=== PATIENT | female | born 1990 | race Asian ===

== ENCOUNTER 2019-03-18 15:16 | Emergency (ER) | payer MEDICAID ==
[~2019-03-18] VITALS: Ht 152.4 cm; Wt 75.9 kg
[~2019-03-18 15:16] MED LIST: DULO-31 PO; HYDR-3686 PO
--- NOTE | 2019-03-18 15:40 | NUR ---
SPOKE WITH PROVIDER MARGUERITE MCKNIGHT REGARDING PT, PROVIDER SPEAKING WITH PT IN TRIAGE ROOM 2 RIGHT NOW.
[2019-03-18] MEDS ORDERED: ondansetron/PF 4mg/2ml inj IV ONE (15:45)
[2019-03-18] MEDS ORDERED: normal saline 1000ML IV soln IVB ONE (15:45)
[2019-03-18] MEDS ORDERED: morphine 4 MG/ML inj SYRINge IV PRN (15:45)
[2019-03-18 16:42] LABS: CLARITY,URINE CLEAR (Clear); COLOR,URINE STRAW (Yellow); GLUCOSE, URINE NEGATIVE (Neg); KETONES,URINE NEGATIVE (Neg); LEUKOCYTE ESTERASE ,URINE NEGATIVE (Neg); NITRITES, URINE NEGATIVE (Neg); OCCULT BLOOD,URINE TRACE-INTACT (Neg); PROTEIN,URINE NEGATIVE (Neg); UA COLLECTION TYPE CLN CATCH MIDSTREAM; UROBILINOGEN,URINE 0.2 E.U/dL (0.2-1.0)
[2019-03-18 16:43] LABS: URINE HCG NEGATIVE (NEG)
[2019-03-18 16:50] LABS: BACTERIA,URINE FEW /HPF (Neg); MUCUS STRANDS NONE SEEN /LPF (Neg); RBC,URINE 0-2 /HPF (0-2); SQUAMOUS EPITHELIAL CELL,UR MODERATE /LPF (FEW); WBC,URINE 0-4 /HPF (0-4)
[2019-03-18 17:00] LABS: BASOPHILS # (AUTO) 0.1 X10'3 (0-0.2); BASOPHILS % (AUTO) 0.6 % (0-1); EOSINOPHILS # (AUTO) 0.2 X10'3 (0-0.9); EOSINOPHILS % (AUTO) 1.6 % (0-6); HEMOGLOBIN 14.8 g/dl (12.0-16.0); LYMPHOCYTES # (AUTO) 2.3 X10'3 (1.1-4.8); LYMPHOCYTES % (AUTO) 15.6 % (21-51); MEAN CORPUSCULAR HEMOGLOBIN 30.2 PG (27.0-31.0); MEAN CORPUSCULAR HGB CONC 34.4 g/dL (33.0-36.5); MEAN PLATELET VOLUME 6.6 FL (7.4-10.4); MONOCYTES # (AUTO) 1.1 X10'3 (0-0.9); MONOCYTES % (AUTO) 7.6 % (2-12); NEUTROPHILS # (AUTO) 11.2 X10'3 (1.8-7.7); NEUTROPHILS % (AUTO) 74.6 % (42-75); PLATELET COUNT 402 X10'3 (140-440); RED BLOOD COUNT 4.89 X10'6 (4.20-5.60); RED CELL DISTRIBUTION WIDTH 12.9 % (11.5-14.5)
[2019-03-18 17:14] LABS: ALBUMIN 3.9 G/DL (3.4-5.0); ALKALINE PHOSPHATASE 70 IU/L (46-116); ANION GAP 8 (8-16); BILIRUBIN,TOTAL 0.2 MG/DL (0.1-1.0); BLOOD UREA NITROGEN 13 MG/DL (7-18); BUN/CREATININE RATIO 16.5 (6.6-38.0); CALCIUM 8.5 MG/DL (8.5-10.1); CHLORIDE 102 MMOL/L (99-107); CREATININE 0.79 MG/DL (0.40-0.90); LIPASE 142 U/L (73-393); SODIUM 137 MMOL/L (135-145); TOTAL CARBON DIOXIDE 27.1 MMOL/L (24-32); TOTAL PROTEIN 7.7 G/DL (6.4-8.2); eGFR 85 ML/MIN
[2019-03-18 17:29] LABS: GLUCOSE 95 MG/DL (70-104); POTASSIUM 4.1 MMOL/L (3.5-5.1)
[2019-03-18 17:47] LABS: ALANINE AMINOTRANSFERASE 74 U/L (12-78); ASPARTATE AMINO TRANSFERASE 23 U/L (10-37)
--- NOTE | 2019-03-18 18:37 | NUR ---
Medications long overdue prior to my arrival. Patient reports feeling better without them and is drinking water without difficulty. Juan Daniel Diaz notified and medications cancelled. Patient reports that she related to the triage nurse that she was feeling suicidal but this does not seem to be related to the provider or mentioned in the triage note. Patient states that she has a psych history and that she would go home and overdose on a, "cocktail of my medications." Hx of suicide attempt by cutting wrists and overdosing on trazadone.
[2019-03-18 18:55] LABS: URINE AMPHETAMINE SCREEN NEGATIVE (Neg); URINE BARBITUATE SCREEN NEGATIVE (Neg); URINE BENZODIAZEPINES SCREEN NEGATIVE (Neg); URINE CANNABINOID SCREEN NEGATIVE (Neg); URINE COCAINE SCREEN NEGATIVE (Neg); URINE METHADONE SCREEN NEGATIVE (Neg); URINE OPIATE SCREEN NEGATIVE (Neg); URINE PHENCYCLIDINE SCREEN NEGATIVE (Neg)
[2019-03-18 19:07] LABS: ETHANOL < 0.010 GM/DL (0.0-0.010)
--- NOTE | 2019-03-18 22:30 | NUR ---
PT AMBULATED TO RESTROOM, STABLE GAIT. PT PLACED BACK IN ROOM ON GURNEY. NO OTHER NEEDS EXPRESSED AT THIS TIME.
--- NOTE | 2019-03-19 | NUR ---
PT RESTING IN BED, EYES CLOSED, NAD NOTED. PT IN LINE OF SITE OF NURSES STATION FOR PT SAFETY. WILL CONTINUE TO MONITOR.
--- NOTE | 2019-03-19 06:56 | NUR ---
PT IS SLEEPING, NO S/S OF DISTRESS, DISCOMFORT OR AGITATION, PT RESPIRATION SPONTANEOUS, EVEN AND UNLABORED, WILL ADDRESS PT MEDICATION RECORD WHEN SHE IS AWAKE.
[2019-03-19] MEDS ORDERED: BUPR150T8 PO (08:28)
[2019-03-19] MEDS ORDERED: PROP20TA6 PO (08:28)
[2019-03-19] MEDS ORDERED: BUSP15TA3 PO (08:29)
[2019-03-19] MEDS ORDERED: PRAZ1CAP5 PO (08:29)
[2019-03-19] MEDS ORDERED: DULO-31 PO (08:33)
[2019-03-19] MEDS ORDERED: ibuprofen tablet 400 MG TABLET PO ONE (09:10)
--- NOTE | 2019-03-19 09:10 | NUR ---
DR OLVERA INFORMED OF PT ABD PAIN 03/15, REVIEWED PT RECENT ABD PAIN AND HX OF IBS, VERBAL ORDER RECIEVED FOR 800 MG IBUPROFEN, DR OLVERA TO REVIEW PT CHART, WILL MEDICATE PT AND CONTINUE TO MONITOR PT STATUS.
[2019-03-19] MEDS: busPIRone 15mg tablet PO PRN ×2 (09:20→20:36)
[2019-03-19] MEDS: buPROPion SR 150mg tablet PO SCH (09:20)
[2019-03-19] MEDS: propranolol 10mg tablet PO SCH ×2 (09:20→20:36)
[2019-03-19] MEDS: duloxetine 30mg CAPSULE.DR PO SCH (09:21)
--- NOTE | 2019-03-19 09:24 | NUR ---
PT ATE APPROX 75% OF BREAKFAST TRAY, MEDICATED PT FOR PAIN, ANXIETY AND SCHEDULED DAILY MEDICATIONS, PT REMAINS CALM AND COOPERATIVE DURING INTERACTIONS.
--- NOTE | 2019-03-19 10:18 | NUR ---
PT LYING ON RIGHT SIDE SLEEPING, RESPIRATIONS SPONTANEOUS, EVEN AND UNLABORED, NO S/S OF DISTRESS, DISCOMFORT OR AGITATION, PT MOVED IN BED ADLIB, AMBULATES AND DAILY ADLs INDEPENDENTLY UPON WAKING. WILL CONTINUE TO MONITOR PT STATUS UNTIL
--- NOTE | 2019-03-19 12:20 | NUR ---
PT MOVED FROM BED 07 TO BED 25 ESCORTED BY HANDS HANGER AND 2 SAFETY OFFICERS, PT TO BE EVALUATED BY [facility] ON 1798 CURRENTLY
--- NOTE | 2019-03-19 12:25 | NUR ---
CALLED TO [facility] OFFICE TO NOTIFY PT ON 1798 AND NEED EVALUATION BY [facility] FOR WRITTEN 1993
--- NOTE | 2019-03-19 13:08 | NUR ---
PT SITTING UP IN BED EATING HER LUNCH,PT SAID HER PAIN IS BETTER 6/10 .PT VITALS CHECKED HR 87.NO DISTRESS NOTED,PT TRANG, AND COOPERATIVE.WILL CONT TO MONITOR.
--- NOTE | 2019-03-19 13:17 | NUR ---
PT MOTHER CALLED PT ON PHONE WITH MOTHER EXPLAINING THAT SHE IS IN OVERFLOW AND HOW SHE IS FEELING.
--- NOTE | 2019-03-19 13:37 | NUR ---
PT STILL WORKING ON HER LUNCH TRAY .PT QUIET AND CALM. WILL CONT TO MONITOR.
--- NOTE | 2019-03-19 13:49 | NUR ---
PT GOT UP TO USE RESTROOM. FINISHED HER LUNCH ATE APPROX 80 %OF LUNCH.
--- NOTE | 2019-03-19 15:27 | NUR ---
[employer] equipment repairer at bedside doing assessment.
--- NOTE | 2019-03-19 19:39 | NUR ---
pt want to talk to someone as pt said she is feeling overwhelmed and miserable.spoke to pt .pt stated that 'i am feeling miserable as the [facility] health security assessor came by and she is going to inform my previous counsler dariusz that am thinking of killing her and keeping her body and i can't live with the fact that she knows that am thinking of killing her ,iwould rather before she knows."pt started crying looks sad and hopeless,asked the pt do you have a plan to hurt urself? pt said not right now but i have to find out a way.psychological support given to the pt ,asked about pt future plans ,pt said she want to get and kids and she smiled ,helped pt to focus on healthier aspects of life ,pt said i felt lot better after talking to you ,pt started solving puzzle and said i love doing coloring and solving problem .pt denies any other concern.pt said am feeling better and now more relaxed after sharing her thoughts.
--- NOTE | 2019-03-19 20:40 | NUR ---
PT GIVEN HER HS MEDS AND BUSPAR FOR HER ANXIETY. PT WAS PLEASANT AND COOPERATIVE WITH CARE.
[2019-03-19] MEDS ORDERED: prazosin 1mg capsule PO SCH (21:00)
--- NOTE | 2019-03-19 22:58 | NUR ---
rcvd report from MARQUIS Roche, pt is in bed, appears to be asleep, equal, regular breathing, no s/s of distress observed
--- NOTE | 2019-03-19 23:38 | NUR ---
pt is prone in bed, regular breathing present, no s/s of distress observed, eyes closed appears to be asleep
--- NOTE | 2019-03-20 00:21 | NUR ---
Lachelle from [facility], called for a nurse to nurse report, gave report, they will work on transfer
--- NOTE | 2019-03-20 00:42 | NUR ---
pt is prone in bed, quietly snoring, no s/s of distress observed
--- NOTE | 2019-03-20 01:36 | NUR ---
pt is asleep, prone, unlabored breathing present
--- NOTE | 2019-03-20 02:30 | NUR ---
Patient sleeping on her left side with even unlabored breathing.
--- NOTE | 2019-03-20 03:13 | NUR ---
pt is asleep no s/s of distress observed, regular breathing
--- NOTE | 2019-03-20 04:22 | NUR ---
pt is asleep, unlabored breathing
--- NOTE | 2019-03-20 05:28 | NUR ---
pt is laying on her left side, eyes closed, appears to be sleeping, regular breathing present, no s/s of distress observed
--- NOTE | 2019-03-20 06:03 | NUR ---
pt cooperative with vitals, no s/s of distress observed
--- NOTE | 2019-03-20 06:30 | NUR ---
Nursing Note: Pt laying in bed with eyes closed, respirations even and unlabored, no S&S of distress, will continue to monitor.
--- NOTE | 2019-03-20 07:56 | NUR ---
Nursing Note: Nurse to Nurse with Rivka Mcqueen. Pt sleeping, RR even and unlabored, no S&S of distress, will continue to monitor.
[2019-03-20] MEDS: buPROPion SR 150mg tablet PO SCH (09:12)
[2019-03-20] MEDS: duloxetine 30mg CAPSULE.DR PO SCH (09:12)
[2019-03-20] MEDS: propranolol 10mg tablet PO SCH (09:12)
--- NOTE | 2019-03-20 10:11 | NUR ---
relieving RN for break, pt is resting quietly on gurney
--- NOTE | 2019-03-20 10:46 | NUR ---
Nursing Note: Pt laying on Xiomy nascimento, RR even and unla Addendum: 03/20/19 at 1047 by TEOFILO Continue: RR even and unlabored, no S&S of distress, will continue to monitor.
--- NOTE | 2019-03-20 12:28 | NUR ---
Nursing Note: [facility] office called, pt accepted to [facility]. Dr. Keith is the accepting Dr. Will continue to monitor.
--- NOTE | 2019-03-20 12:51 | NUR ---
Nursing Note: Pt laying in bed on R side, RR even and unlabored, no S&S of distress, will continue to monitor.
--- NOTE | 2019-03-20 14:37 | NUR ---
Nursing Notes: ANJALI Gutierrez at pt's bedside, pt signing consent paperwork for CBR[facility]. Pt cooperative. No S&S of distress, will continue to monitor.
--- NOTE | 2019-03-20 14:54 | NUR ---
Discharge note: Pt discharged at 1450 to [facility], via wheelchair. Escorted by [facility] ANJALI Ochoa and a security auditor. Pt calm and cooperative. No S&S of distress. Pt provided discharge instructions and offered opportunity to ask questions. All possessions sent with pt.
[2019-03-20 15:03] VITALS: BP 110/75
== END 2019-03-20 14:50 ==
LOC: ER 15:16
DX: K52.9 Noninfective gastroenteritis and colitis, unspecified (principal); R45.851 Suicidal ideations; R45.850 Homicidal ideations; F31.9 Bipolar disorder, unspecified; Z79.899 Other long term (current) drug therapy
CPT/HCPCS: 36415; 74176; 80053; 80305; 80320; 81001; 81025; 83690; 84443; 85025; 85610; 99285

== ENCOUNTER 2019-03-20 13:53 | Inpatient (IN) | payer MEDICAID ==
[~2019-03-20] VITALS: Ht 153.7 cm; Wt 79.9 kg
[~2019-03-20 13:53] MED LIST changes: +BUPR150T8 PO; +BUSP15TA3 PO; -HYDR-3686 PO; +PRAZ1CAP5 PO; +PROP20TA6 PO
[2019-03-20] MEDS ORDERED: tuberculin, purif. prot. deriv. 5 units/0.1ml ID ONE (14:10)
[2019-03-20] MEDS ORDERED: loperamide 2mg capsule PO PRN (14:10)
[2019-03-20] MEDS ORDERED: busPIRone 15mg tablet PO PRN (14:55)
--- NOTE | 2019-03-20 16:01 | NUR ---
Admission Note: Pt admitted today on 5150 at 1500 for DTS/DTO. Pt escorted up from the ER via W/C with security and Don Abbott to the shower for skin check. Pt reports homicidal thoughts and has been thinking about going to [place] to kill her former therapist and bring her body back home to be near her. Raquel also reports suicidal thoughts with plan to OD. Pt has history of Bipolar.
[2019-03-20 19:00] VITALS: BP 128/88
[2019-03-20] MEDS: prazosin 1mg capsule PO SCH (20:15)
[2019-03-20] MEDS: propranolol 10mg tablet PO SCH (20:15)
--- NOTE | 2019-03-20 21:24 | NUR ---
Nursing Progress Note: Legal hold:5149 Client on voluntary/involuntary status for DTS/DTO. Report received from nurse with use of SBAR. Why are they here:. Admission Note: Pt admitted today on 5150 at 1500 for DTS/DTO. Pt escorted up from the ER via W/C with security and Don Abbott to the shower for skin check. Pt reports homicidal thoughts and has been thinking about going to [place] to kill her former therapist and bring her body back home to be near her. Raquel also reports suicidal thoughts with plan to OD. Pt has history of Bipolar. Assessment What has happened this shift: S/I, H/I:yes A/VH: denies Sleep: ADL's: ind Group attendance: Were meds taken:yes Any med S/E none Mental Status Exam Appearance: kempt Eye contact:good Behavior: calm Speech:clear Mood: glumb Affect: flat Thought process:intact Thought Content:appropriate Cognition: Insight:poor Judgment:poor Interventions PRN's used:none Therapeutic interventions:[] Restraints/seclusion/emergency medication:[] Justification of Continued Inpatient Treatment: Patient continuses to express SI/HIat this time and needs further monitoring for safety.
[2019-03-21] MEDS: acetaminophen 325mg tablet PO PRN ×3 (04:10→19:46)
[2019-03-21 08:02] LABS: HEMOGLOBIN A1C 5.9 % (4.5-6.2)
[2019-03-21 08:06] LABS: CHOL/HDL RATIO 5.9 (0.00-4.99); CHOLESTEROL 237 MG/DL (0-200); HDL CHOLESTEROL 40 MG/DL (35-60); LDL CHOLESTEROL 143 MG/DL (50-100); TRIGLYCERIDES 317 MG/DL (20-135)
[2019-03-21] MEDS: buPROPion SR 150mg tablet PO SCH (08:06)
[2019-03-21] MEDS: duloxetine 30mg CAPSULE.DR PO SCH (08:06)
[2019-03-21] MEDS: propranolol 10mg tablet PO SCH ×2 (08:06→20:42)
[2019-03-21 08:11] VITALS: BP 120/79
[2019-03-21] MEDS: magnesium hydroxide 30ml (MOM) UD suspension PO PRN (09:00)
--- NOTE | 2019-03-21 13:00 | NUR ---
Malnutrition consult: patient presents with normal muscle strength, per documented weight history no weight loss, great appetite 75-100% PO intake, no edema, no malnutrition at this time. Addendum: 03/21/19 at [address] Amended: Links added.
--- NOTE | 2019-03-21 14:35 | NUR ---
Nursing Progress Note: Legal hold:5150 Client on involuntary status for DTS/DTO. Report received from nurse with use of SBAR, Johanny ERICKSON Why are they here:. Pt presented to the ER with c/o LLQ abdominal pain then divulged that the main reason she was there is that she was sent by a therapist for eval due to reports of homicidal thoughts. She has been thinking about going to [place] to kill her former therapist and bring her body back home to be near her. Rqauel also reports suicidal thoughts with plan to OD. Pt has history of Bipolar. Assessment What has happened this shift: Pt rated her depression at a 9/10 today and her anxiety at an 8/10. She is endorsing SI with a plan to cut her wrists but contracts for safety today saying she won't do it here. Pt continues to endorse HI as well towards her former therapist. Pt described how she started seeing the therapist in July but the therapist moved away to [place] in November. Pt stated that they had gotten really close but then the therapist changed. Pt continues to think about going to [place] to kill her former therapist and bring her body back to keep with her. "I really miss her...I think I'm obsessed with her." Pt stated these things in a soft, pleasant little girl-like voice and smiled at times during the conversation. Attempted some reflection and reality orientation, discussed possible feelings of anger about therapist leaving her, also discussed how she seems to care for her former therapist and caring does not involve harming another. Pt nodded and smiled but remained steadfast in her ideations. Pt continues to complain of LLQ pain, stated she was worked up at [facility] for this and the studies came back normal, all but her WBCs which were 15. Pt states she was told she may have had a virus. She is also c/o constipation stating she had a small hard BM this morning. Pt reported that her last menstrual cycle ended on the of last month and that she has been bleeding a little from her vagina but not heavy like her periods usually are. Pt describes LLQ pain as crampy and sharp. Abdomen is soft, BS X 4, some tenderness LLQ with palpation. Administered prn Tylenol 650 mg and MOM at 0900, gave prn Buspar 15 mg for anxiety at 0905. Pt was cooperative and polite, thanked this RN for her help. S/I, H/I: +SI/+HI A/VH: Pt denied, stated she did have AH and VH in the past, was treated at [facility] and given some medicine that stopped them. Sleep: Reported she slept well, slept 7.5 hours per noc shift report ADL's: independent Group attendance: yes Were meds taken:yes Any med S/E: none noted or reported Mental Status Exam Appearance: clean, appropriate Eye contact:good Behavior: calm, cooperative Speech: soft, clear, normal rate and rhythm Mood: depressed, anxious Affect: calm Thought process: Linear, some perseveration on somatic complaints Thought Content: Concerned about LLQ pain, misses and obsesses over former therapist Cognition: A/O X 4 Insight:fair Judgment:poor Interventions PRN's used: MOM, Tylenol 650 mg, Buspar 15 mg Therapeutic interventions: 1:1 assessment, therapeutic conversation, medication administration/education/management, constipation management, reality orientation, encouragement to attend groups, Q 15 min safety checks. Restraints/seclusion/emergency medication: N/A Justification of Continued Inpatient Treatment: Pt continues to endorse SI and HI. She needs crisis stabilization and medication adjustment in a safe, therapeutic environment.
[2019-03-21 20:00] VITALS: BP 126/89
[2019-03-21] MEDS: busPIRone 15mg tablet PO SCH (20:42)
[2019-03-21] MEDS: docusate sod 100mg capsule PO SCH (20:42)
[2019-03-21] MEDS: prazosin 1mg capsule PO SCH (20:42)
--- NOTE | 2019-03-21 22:53 | NUR ---
Nursing Progress Note: Legal hold:5150 Client on involuntary status for DTS/DTO. Report received from nurse with use of KEVIN, Johanny ERICKSON Why are they here:. Pt presented to the ER with c/o LLQ abdominal pain then divulged that the main reason she was there is that she was sent by a therapist for eval due to reports of homicidal thoughts. She has been thinking about going to [place] to kill her former therapist and bring her body back home to be near her. Raquel also reports suicidal thoughts with plan to OD. Pt has history of Bipolar. Assessment What has happened this shift: Pt rated her depression at a 9/10 today and her anxiety at an 8/10. She is endorsing SI with a plan to cut her wrists but contracts for safety today saying she won't do it here. Pt continues to endorse HI as well towards her former therapist. Pt continues to complain of LLQ pain, stated she was worked up at [facility] for this and the studies came back normal. Pt describes LLQ pain as crampy and sharp. Abdomen is soft, BS X 4, some tenderness LLQ with palpation. Administered prn Tylenol 650 mg.Pt was cooperative and polite, thanked this RN for her help. S/I, H/I: +SI/+HI A/VH: Pt denied, stated she did have AH and VH in the past, was treated at [facility] and given some medicine that stopped them. Sleep: Reported she slept well, slept 7.5 hours per noc shift report ADL's: independent Group attendance: yes Were meds taken:yes Any med S/E: none noted or reported Mental Status Exam Appearance: clean, appropriate Eye contact:good Behavior: calm, cooperative Speech: soft, clear, normal rate and rhythm Mood: depressed, anxious Affect: calm Thought process: Linear, some perseveration on somatic complaints
[2019-03-22 08:00] VITALS: BP 126/83
[2019-03-22] MEDS: duloxetine 30mg CAPSULE.DR PO SCH (08:23)
[2019-03-22] MEDS: propranolol 10mg tablet PO SCH ×2 (08:23→20:43)
[2019-03-22] MEDS: docusate sod 100mg capsule PO SCH ×2 (08:24→20:43)
[2019-03-22] MEDS: busPIRone 15mg tablet PO SCH ×3 (08:24→20:43)
[2019-03-22] MEDS: buPROPion SR 150mg tablet PO SCH (08:24)
[2019-03-22] MEDS: acetaminophen 325mg tablet PO PRN (09:02)
[2019-03-22] MEDS: magnesium hydroxide 30ml (MOM) UD suspension PO PRN (09:02)
[2019-03-22] MEDS ORDERED: ALBU8HFA PO (14:22)
[2019-03-22] MEDS: hydrOXYzine 25 MG tablet PO PRN (14:32)
--- NOTE | 2019-03-22 15:36 | NUR ---
Nursing Progress Note: Legal hold:5150 Client on involuntary status for DTS/DTO. Report received from nurse with use of SBAR, Johanny ERICKSON Why are they here:. Pt presented to the ER with c/o LLQ abdominal pain then divulged that the main reason she was there is that she was sent by a therapist for eval due to reports of homicidal thoughts. She has been thinking about going to [place] to kill her former therapist and bring her body back home to be near her. Raquel also reports suicidal thoughts with plan to OD. Pt has history of Bipolar. Assessment What has happened this shift: Pt rated her depression today at an 8/10 and her anxiety at a 7/10, stated, "I would kill myself if I got out of here," reported her plan would be to OD or to cut her wrists. Pt continues to have HI toward her former therapist, "not because I'm angry with her, just because I miss her sooo much." Pt reported that she slept really well. She continues to c/o LLQ pain, reports that she still feels constipated and that she has started her period. BS present X 4, administered prn MOM and tylenol 650 mg at 0900. Pt's prn Buspar was changed to routine 15 mg TID. At around 1415 pt reported to PCT that she was having "chest pain." VS were taken, 97.4, 80, 20, 147/97, 99% on RA. Pt appeared anxious. Pt reported that she was helping to clean the dining room after lunch and the cleaning supplies irritated her lungs, caused her to cough, feel SOB and have chest pain. Pt lungs were clear though diminished upon auscultation, pt was not taking deep breaths but breathing shallowly. Pt reported that she has seasonal asthma and had been prescribed an inhaler at home. Heart rate was regular and pt denied any pain radiating to arms. Pt admitted to feeling anxious, stated she gets angina sometimes when she is anxious. The hospitalist Dr Patino was present on the unit and assessed the pt. He did not feel she was having cardiac associated chest pain, he ordered prn albuterol neb txs Q 6H prn. Administered prn Atarax 50 mg at 1432, RT came and administered a breathing treatment. Pt currently reports that she no longer has chest pain and is feeling much better. Determined with moccasin sewer that the pt had not been using any cleaning supplies, she had only been present in the room while the tables were being wiped down. S/I, H/I: +SI, +HI A/VH: Pt denies Sleep: Pt reported sleeping really well, slept 6.5 hours per noc shift report ADL's: independent Group attendance: yes Were meds taken:yes Any med S/E: none noted or reported Mental Status Exam Appearance: Hair a little greasy, dressed in green hospital scrubs Eye contact: Fair Behavior: cooperative, socializes with select peers, does search word puzzles in her room, a little needy and attention seeking Speech: soft, clear, little girl-like voice with normal rate and rhythm Mood: depressed, anxious Affect: anxious Thought process: organized,obsessive, perseveration on somatic complaints Thought Content: focuses on somatic complaints, her abdominal pain, she's constipated, she has period cramps, she had chest pain and felt SOB from being in the room with cleaning products, and she misses her former therapist Cognition: A/O X 4 Insight:fair Judgment:poor Interventions PRN's used: MOM, Tylenol 650 mg, atarax 50 mg, albuterol neb tx Therapeutic interventions: 1:1 assessment, therapeutic conversation, medication administration/education/management, constipation management, reality orientation, anxiety management, encouragement to attend groups, Q 15 min safety checks. Restraints/seclusion/emergency medication: N/A Justification of Continued Inpatient Treatment: Pt continues to be depressed, anxious and to endorse SI and HI. She needs crisis stabilization and medication adjustment in a safe, therapeutic environment.
[2019-03-22 20:00] VITALS: BP 138/91
[2019-03-22] MEDS: prazosin 1mg capsule PO SCH (20:44)
--- NOTE | 2019-03-22 23:31 | NUR ---
Nursing Progress Note: Legal hold:5150 Client on involuntary status for DTS/DTO. Report received from nurse with use of Omari BROWN Why are they here:. Pt presented to the ER with c/o LLQ abdominal pain then divulged that the main reason she was there is that she was sent by a therapist for eval due to reports of homicidal thoughts. She has been thinking about going to [place] to kill her former therapist and bring her body back home to be near her. Raquel also reports suicidal thoughts with plan to OD. Pt has history of Bipolar. Assessment What has happened this shift: Pt rated her depression today at an 8/10 and her anxiety at a 7/10, stated, "I would kill myself if I got out of here," reported her plan would be to OD or to cut her wrists. Pt continues to have HI toward her former therapist, "not because I'm angry with her, just because I miss her sooo much." Pt reported that she slept really well. She continues to c/o LLQ pain, reports that she still feels constipated and that she has started her period. BS present X 4, administered prn MOM and tylenol 650 mg at 0900. Pt's prn Buspar was changed to routine 15 mg TID. Patient c/o chest pain and SOB earlier in the day. Pt had no further complaint this shift. S/I, H/I: +SI, +HI A/VH: Pt denies Sleep: Pt reported sleeping really well, slept 6.5 hours per noc shift report ADL's: independent Group attendance: yes Were meds taken:yes Any med S/E: none noted or reported Mental Status Exam Appearance: Hair a little greasy, dressed in green hospital scrubs Eye contact: Fair Behavior: cooperative, socializes with select peers, does search word puzzles in her room, a little needy and attention seeking Speech: soft, clear, little girl-like voice with normal rate and rhythm Mood: depressed, anxious Affect: anxious Thought process: organized,obsessive, perseveration on somatic complaints Thought Content: focuses on somatic complaints, her abdominal pain, she's constipated, she has period cramps, she had chest pain and felt SOB from being in the room with cleaning products, and she misses her former therapist Cognition: A/O X 4 Insight:fair Judgment:poor Interventions PRN's used: MOM, Tylenol 650 mg, atarax 50 mg, albuterol neb tx Therapeutic interventions: 1:1 assessment, therapeutic conversation, medication administration/education/management, constipation management, reality orientation, anxiety management, encouragement to attend groups, Q 15 min safety checks. Restraints/seclusion/emergency medication: N/A Justification of Continued Inpatient Treatment: Pt continues to be depressed, anxious and to endorse SI and HI. She needs crisis stabilization and medication adjustment in a safe, therapeutic environment.
[2019-03-23] MEDS: buPROPion SR 150mg tablet PO SCH (07:58)
[2019-03-23] MEDS: propranolol 10mg tablet PO SCH ×2 (07:58→20:32)
[2019-03-23] MEDS: busPIRone 15mg tablet PO SCH ×3 (07:58→20:30)
[2019-03-23] MEDS: duloxetine 30mg CAPSULE.DR PO SCH (07:58)
[2019-03-23] MEDS: docusate sod 100mg capsule PO SCH ×2 (07:58→20:31)
[2019-03-23] MEDS: acetaminophen 325mg tablet PO PRN (07:59)
[2019-03-23 08:00] VITALS: BP 132/90
[2019-03-23] MEDS: albuterol 2.5 MG/3 ML nebule NEB PRN (10:24)
[2019-03-23] MEDS: ibuprofen 200mg tablet PO SCH ×2 (12:11→20:32)
[2019-03-23] MEDS: hydrOXYzine 25 MG tablet PO PRN (12:11)
[2019-03-23 12:44] LABS: BASOPHILS # (AUTO) 0.1 X10'3 (0-0.2); BASOPHILS % (AUTO) 0.7 % (0-1); EOSINOPHILS # (AUTO) 0.2 X10'3 (0-0.9); HEMATOCRIT 40.2 % (35.0-45.0); HEMOGLOBIN 13.9 g/dl (12.0-16.0); LYMPHOCYTES # (AUTO) 1.9 X10'3 (1.1-4.8); LYMPHOCYTES % (AUTO) 22.9 % (21-51); MEAN CORPUSCULAR HEMOGLOBIN 30.8 PG (27.0-31.0); MEAN CORPUSCULAR HGB CONC 34.6 g/dL (33.0-36.5); MEAN PLATELET VOLUME 6.6 FL (7.4-10.4); MONOCYTES # (AUTO) 0.8 X10'3 (0-0.9); MONOCYTES % (AUTO) 9.8 % (2-12); NEUTROPHILS # (AUTO) 5.4 X10'3 (1.8-7.7); NEUTROPHILS % (AUTO) 64.6 % (42-75); PLATELET COUNT 351 X10'3 (140-440); RED BLOOD COUNT 4.51 X10'6 (4.20-5.60); RED CELL DISTRIBUTION WIDTH 13.2 % (11.5-14.5); WHITE BLOOD COUNT 8.4 X10'3 (4.5-11.0)
[2019-03-23] MEDS: dicyclomine 10 MG capsule PO PRN (15:21)
--- NOTE | 2019-03-23 16:03 | NUR ---
Nursing Progress Note: Legal hold:5250 Client on involuntary status for DTS/DTO. Report received from nurse with use of SBAR, Johanny ERICKSON Why are they here:. Pt presented to the ER with c/o LLQ abdominal pain then divulged that the main reason she was there is that she was sent by a therapist for eval due to reports of homicidal thoughts. She has been thinking about going to [place] to kill her former therapist and bring her body back home to be near her. Raquel also reports suicidal thoughts with plan to OD. Pt has history of Bipolar. Assessment What has happened this shift: Pt reported, "I'm feeling anxious today but I don't know why," then went on to say, "I think it's worse-this stupid pain down here that's not going away, it seems like phantom pain but it's not, I just want to because of it, I can't deal with it." "It's uncomfortable, I pooped really good, I don't feel like I'm constipated anymore." Pt continues to c/o LLQ/pelvic pain. She describes it as sharp and cramping. She stated that it feels like, "you know when you get a cramp in your side." Asked her if she meant a "stitch" and she agreed yes. Asked if she was having gas, she reported that yes she was and that pain seemed worse just after having a soft, formed BM today. She reported that she was not on her period anymore, that she thinks it's over. Pt states that her periods usually only last around 3 days. Medicated with prn Tylenol 650 mg at 0759. Pt denied HI today, stated that she no longer wishes to kill her former therapist but wants to make a wax figure of her. Pt continues to endorse SI, states, "It's when I go home, I'm super scared of myself, I'm just so depressed." Spoke with MARGUERITE Love regarding pt's complaints of ongoing LLQ pain. He ordered ibuprofen 600 mg TID, Bentyl 10 mg Q 6H prn abdominal cramping, and to recheck CBC. CBC came back WNL, WBC down from 15 to 8.4. A hot compress was provided to pt, ibuprofen administered as ordered, and prn Atarax given for anxiety before lunch. Pt reported that she felt better. She reapproached this RN at 1521 to request the medicine for cramping, she was grimacing and holding her side. Bentyl 10 mg administered at that time. Pt was placed on a 5250 today. S/I, H/I: +SI, denies HI A/VH: Pt denies Sleep: Slept 7.75 hours per noc shift report ADL's: independent Group attendance: yes Were meds taken:yes Any med S/E: none noted or reported Mental Status Exam Appearance: Clean (pt showered yesterday afternoon) Eye contact: Fair, frequently avoids direct eye contact Behavior: pleasant, cooperative Speech: soft, clear, little girl-like voice with normal rate and rhythm Mood: depressed, anxious Affect: anxious Thought process: perseveration, especially on somatic complaints Thought Content: perseverating on pain/cramping LLQ, believes that something is wrong Cognition: A/O X 4 Insight:fair Judgment:poor Interventions PRN's used: Tylenol 650 mg, Atarax 50 mg, Bentyl 10 mg Therapeutic interventions: 1:1 assessment, therapeutic conversation, medication administration/education/management, reality orientation, anxiety management, pain management, encouragement to attend groups, Q 15 min safety checks. Restraints/seclusion/emergency medication: N/A Justification of Continued Inpatient Treatment: Pt continues to be depressed, anxious and to endorse SI. She needs crisis stabilization and medication adjustment in a safe, therapeutic environment.
[2019-03-23 19:57] VITALS: BP 133/91
[2019-03-23] MEDS: prazosin 1mg capsule PO SCH (20:31)
--- NOTE | 2019-03-23 21:43 | NUR ---
Nursing Progress Note: Legal hold:5250 Client on involuntary status for DTS/DTO. Report received from nurse with use of Lora BROWN Why are they here:. Pt presented to the ER with c/o LLQ abdominal pain then divulged that the main reason she was there is that she was sent by a therapist for eval due to reports of homicidal thoughts. She has been thinking about going to [place] to kill her former therapist and bring her body back home to be near her. Raquel also reports suicidal thoughts with plan to OD. Pt has history of Bipolar. Assessment What has happened this shift: Pt reported, feeling better I think the pain is less. Pt still isolates to her room most of the time. She did come out for snacks and ate in the group room with her peers. She reported that cramping is less and she has had a good BM. She denies SI/HI at this time. S/I, H/I: +SI, denies HI A/VH: Pt denies Sleep: Slept 7.75 hours per noc shift report ADL's: independent Group attendance: yes Were meds taken:yes Any med S/E: none noted or reported Mental Status Exam Appearance: Clean (pt showered yesterday afternoon) Eye contact: Fair, frequently avoids direct eye contact Behavior: pleasant, cooperative Speech: soft, clear, little girl-like voice with normal rate and rhythm Mood: depressed, anxious Affect: anxious Thought process: perseveration, especially on somatic complaints Thought Content: perseverating on pain/cramping LLQ, believes that something is wrong Cognition: A/O X 4 Insight:fair Judgment:poor Interventions PRN's used: Tylenol 650 mg, Atarax 50 mg, Bentyl 10 mg Therapeutic interventions: 1:1 assessment, therapeutic conversation, medication administration/education/management, reality orientation, anxiety management, pain management, encouragement to attend groups, Q 15 min safety checks. Restraints/seclusion/emergency medication: N/A Justification of Continued Inpatient Treatment: Pt continues to be depressed, anxious and to endorse SI. She needs crisis stabilization and medication adjustment in a safe, therapeutic environment.
[2019-03-24] MEDS: propranolol 10mg tablet PO SCH ×2 (07:30→20:23)
[2019-03-24] MEDS: buPROPion SR 150mg tablet PO SCH (07:30)
[2019-03-24] MEDS: docusate sod 100mg capsule PO SCH ×2 (07:31→20:23)
[2019-03-24] MEDS: duloxetine 30mg CAPSULE.DR PO SCH (07:32)
[2019-03-24] MEDS: ibuprofen 200mg tablet PO SCH ×3 (07:33→20:22)
[2019-03-24] MEDS: busPIRone 15mg tablet PO SCH ×3 (07:33→20:23)
[2019-03-24 07:45] VITALS: BP 122/81
[2019-03-24] MEDS: divalproex sod 250mg ER (24-hour) tablet PO SCH (08:42)
[2019-03-24] MEDS: dicyclomine 10 MG capsule PO PRN ×2 (12:52→20:23)
--- NOTE | 2019-03-24 13:18 | NUR ---
Initial: great appetite 75-100% PO intake, meeting nutrition needs needing no nutrition intervention at this time. Noted that TG are elevated, no history of hyperlipidemia. Currently on regular diet, no current meds for lipids. Discussed above with RN, who will discuss with MD. Recommend: 1. Consider heart healthy diet in view of elevated LDL and TG, d/w RN to discuss with MD 2. weekly wts Addendum: 03/24/19 at [address] Amended: Links added.
[2019-03-24] MEDS ORDERED: ketorolac trometh inj. 60 MG/2 ML VIAL IM ONE (16:10)
--- NOTE | 2019-03-24 17:00 | NUR ---
Nursing Progress Note: Legal hold:5250 Client on involuntary status for DTS/DTO. Report received from nurse with use of Cleo BROWN Why are they here:. Pt presented to the ER with c/o LLQ abdominal pain then divulged that the main reason she was there is that she was sent by a therapist for eval due to reports of homicidal thoughts. She has been thinking about going to [place] to kill her former therapist and bring her body back home to be near her. Raquel also reports suicidal thoughts with plan to OD. Pt has history of Bipolar. Assessment What has happened this shift: Pt. asleep at start of shift. Pt. took medications and ate all meals in the community room. 1:1 done at bedside. Pt. reports SI without pain. feels sad, 8/10 depression and anxiety. Pt. denies HI, A/V H. Pt. reports sleeping poorly because of flash backs to the dog who attacked or last november. Pt. reports she sometimes sees the silhouete of the dog around her bed, even though she knows that the dog is . Pt. is isolative. Pt. goes to groups and says she benefits from going. Pt. reports difficulty during bowel movements, having to strain excessivley and it causing her pain in her LLQ. Pt. became tearful in afternoon, crying, saying that she was in tremendous pain and feeling like her providers are not taking her pain seriously. RN given order for Toradol 60mg IM now which had good effect. Pt. reports heating pads also help her. Pt. reports she no longer wants to kill her therapist. RN observed pt.'s stool as having lots of mucous. S/I, H/I: Passive SI. Denies HI. A/VH: Pt denies Sleep: Napped x2 today ADL's: independent Group attendance: yes Were meds taken:yes Any med S/E: none noted or reported Mental Status Exam Appearance: Clean, in green scrubs Eye contact: Fair, frequently avoids direct eye contact Behavior: pleasant, cooperative, isolative Speech: soft, clear, little girl-like voice with normal rate and rhythm Mood: depressed, anxious Affect: anxious Thought process: perseveration, especially on somatic complaints Thought Content: Pt. feels ignored on pain/cramping LLQ, Cognition: A/O X 4 Insight:fair Judgment:poor Interventions PRN's used: Tylenol 650 mg, Atarax 50 mg, Bentyl 10 mg Therapeutic interventions: 1:1 assessment, therapeutic conversation, medication administration/education/management, reality orientation, anxiety management, pain management, encouragement to attend groups, Q 15 min safety checks. Restraints/seclusion/emergency medication: N/A Justification of Continued Inpatient Treatment: Pt continues to be depressed, anxious and to endorse SI. She needs crisis stabilization and medication adjustment in a safe, therapeutic environment.
[2019-03-24] MEDS: prazosin 1mg capsule PO SCH (20:23)
[2019-03-24 20:50] VITALS: BP 140/94
[2019-03-24] MEDS: albuterol 2.5 MG/3 ML nebule NEB PRN (22:07)
--- NOTE | 2019-03-25 01:59 | NUR ---
Nursing Progress Note: Legal hold: 5250 Client on voluntary/involuntary status for DTS/DTO. Report received from nurse with use of SBPRAMOD day shift rn. Why are they here: Pt presented to the ER with c/o LLQ abdominal pain then divulged that the main reason she was there is that she was sent by a therapist for eval due to reports of homicidal thoughts. She has been thinking about going to [place] to kill her former therapist and bring her body back home to be near her. Raquel also reports suicidal thoughts with plan to OD. Pt has history of Bipolar. Assessment What has happened this shift: Patient complained of 8/10 LLQ pain at the beginning of shift. She said her pain began after a recent BM and this has been going on for 11 days. When asked, she said she has a hx of IBS but an exacerbation has never lasted this long. She has had [facility] but would like to be worked up further here. S/I, H/I: Denies A/VH: Denies Sleep: Pt fell asleep shortly after getting into bed for the night. ADL's: Independent Group attendance: Were meds taken: Yes Any med S/E: None observed Mental Status Exam Appearance: In green scrubs with disheveled unwashed hair. Appears chronological age. Eye contact: Appropriate Behavior: Subdued, clutching a book. Speech: Normal rate, volume and tone Mood: Pt states she is feeling good Affect: Restricted Thought process: Normal thought formation Thought Content: Without ruminations, compulsions, or delusions. Denies presence of suicidal or homicidal ideation. Preoccupied with bowels. Cognition: Pt appears alert with a stable level of consciousness. Formal cognitive testing not performed. Insight: Good Judgment: Fair Interventions PRN's used: Ruchi Therapeutic interventions: 1:1 assessment, medication administration, medication education, 15 min checks for safety. Restraints/seclusion/emergency medication: None Justification of Continued Inpatient Treatment: Interrupt current crisis, and prevent further decompensation.
[2019-03-25 07:35] VITALS: BP 111/67
[2019-03-25] MEDS: propranolol 10mg tablet PO SCH ×2 (08:26→20:55)
[2019-03-25] MEDS: buPROPion SR 150mg tablet PO SCH (08:26)
[2019-03-25] MEDS: duloxetine 30mg CAPSULE.DR PO SCH (08:26)
[2019-03-25] MEDS: docusate sod 100mg capsule PO SCH ×2 (08:26→20:55)
[2019-03-25] MEDS: ibuprofen 200mg tablet PO SCH ×3 (08:27→20:55)
[2019-03-25] MEDS: divalproex sod 250mg ER (24-hour) tablet PO SCH (08:27)
[2019-03-25] MEDS: busPIRone 15mg tablet PO SCH ×2 (08:27→14:14)
[2019-03-25] MEDS: acetaminophen 325mg tablet PO PRN (09:28)
[2019-03-25] MEDS: dicyclomine 10 MG capsule PO PRN (14:15)
[2019-03-25] MEDS: mag hydrox/Alum hydrox/simeth 30ml oral suspension PO PRN (16:41)
[2019-03-25] MEDS: hydrOXYzine 25 MG tablet PO PRN (16:42)
--- NOTE | 2019-03-25 18:14 | NUR ---
Nursing Progress Note: Raquel Legal hold:5250 Client on involuntary status for DTS/DTO. Report received from nurse with use of Cleo BROWN Why are they here: Pt presented to the ER with c/o LLQ abdominal pain then divulged that the main reason she was there is that she was sent by a therapist for eval due to reports of homicidal thoughts. She has been thinking about going to [place] to kill her former therapist and bring her body back home to be near her. Raquel also reports suicidal thoughts with plan to OD. Pt has history of Bipolar. Assessment What has happened this shift: Patient sleeping at change of shift. Awakened for breakfast and medications. Pt. Complains of abdominal pain, and is given Bentyl, Maalox and routine ibuprofen. Patient received Atarax for anxiety. She is busily doing crossword puzzles in her spare time. Attends all groups, medication compliant. Pt. Does state that she has been straining to go to the bathroom, and had a few drops of blood in toilette. S/I, H/I: I want to . A/VH: Pt denies Sleep: Napped. ADL's: independent. Group attendance: yes Were meds taken:yes Any med S/E: none noted or reported Mental Status Exam Appearance: Clean, in green scrubs Eye contact: Fair, frequently avoids direct eye contact Behavior: Com,pliant with treatment. Pleasant. Speech: soft, clear, normal rate and rhythm Mood: depressed, anxious Affect: Blunted. Thought process: perseveration, especially on somatic complaints Thought Content: Pt. feels ignored on pain/cramping LLQ, Cognition: A/O X 4 Insight:fair Judgment:poor Interventions PRN's used: Maalox, Atarax 50 mg, Bentyl 10 mg Therapeutic interventions: 1:1 assessment, therapeutic conversation, medication administration/education/management, reality orientation, anxiety management, pain management, encouragement to attend groups, Q 15 min safety checks. Restraints/seclusion/emergency medication: N/A Justification of Continued Inpatient Treatment: Pt continues to be depressed, anxious and to endorse SI. She needs crisis stabilization and medication adjustment in a safe, therapeutic environment.
[2019-03-25] MEDS: magnesium hydroxide 30ml (MOM) UD suspension PO PRN (19:52)
[2019-03-25] MEDS: LORazepam 1 MG tablet PO PRN (19:52)
[2019-03-25 20:00] VITALS: BP 108/69
[2019-03-25] MEDS: busPIRone 5mg tablet PO SCH (20:54)
[2019-03-25] MEDS: prazosin 1mg capsule PO SCH (20:56)
--- NOTE | 2019-03-25 23:51 | NUR ---
Nursing Progress Note: Legal hold: 5250 Client on voluntary/involuntary status for DTS/DTO. Report received from MARQUIS Betts with use of SBAR Why are they here: Pt presented to the ER with c/o LLQ abdominal pain then divulged that the main reason she was there is that she was sent by a therapist for evaluation due to reports of homicidal thoughts. She has been thinking about going to [place] to kill her former therapist and bring her body back home to be near her. Raquel also reports suicidal thoughts with plan to OD. Pt has history of Bipolar. Assessment What has happened this shift: Patient is in her bed at the change of shift laying down with her head covered. She reports 10/10 LLQ pain at the beginning of shift. She states she has been going daily, but she constipated and has to strain to pass a bowel movement which is usually hard. She is encouraged to walk, drink more fluids and takes MOM to encourage a BM, patient verbally states that she understands. Patient talks about PTSD after a dog bite and says she was "anxious" and that she did not get much sleep last night. She reports anxiety over her nightmares and not getting any sleep. She is complaint with HS medications. S/I, H/I: Denies A/VH: Denies Sleep: See sleep assessment ADL's: Independent Group attendance: No groups this shift Were meds taken: Yes Any med S/E: None observed Mental Status Exam Appearance: Clean, was brushing her teeth in her room this evening Eye contact: Appropriate Behavior: Calm, isolative Speech: Normal rate, volume and tone Mood: Anxious Affect: Restricted Thought process: Linear Thought Content: Without ruminations, compulsions, or delusions. Denies presence of suicidal or homicidal ideation. Preoccupied with bowels. Cognition: Alert and Oriented Insight: Good Judgment: Fair Interventions PRN's used: Ativan, MOM Therapeutic interventions: 1:1 assessment, maintained safe therapeutic milieu, provided active listening with positive reinforcement, medication administration, medication education, 15 min checks for safety. Restraints/seclusion/emergency medication: None Justification of Continued Inpatient Treatment: Interrupt current crisis, and prevent further decompensation. Addendum: 03/26/19 at 0514 by Jennifer Pickett RN Patient denies any current intent to harm herself, but does have passive SI with wish to .
[2019-03-26] MEDS: hydrOXYzine 25 MG tablet PO PRN (02:42)
[2019-03-26 07:00] VITALS: BP 133/94
[2019-03-26] MEDS: ibuprofen 200mg tablet PO SCH ×3 (08:15→19:56)
[2019-03-26] MEDS: dicyclomine 10 MG capsule PO PRN ×2 (08:16→19:55)
[2019-03-26] MEDS: duloxetine 30mg CAPSULE.DR PO SCH (08:16)
[2019-03-26] MEDS: busPIRone 5mg tablet PO SCH ×3 (08:16→19:55)
[2019-03-26] MEDS: docusate sod 100mg capsule PO SCH ×2 (08:16→19:55)
[2019-03-26] MEDS: buPROPion SR 150mg tablet PO SCH (08:16)
[2019-03-26] MEDS: divalproex sod 250mg ER (24-hour) tablet PO SCH (08:16)
[2019-03-26] MEDS: propranolol 10mg tablet PO SCH ×2 (08:17→19:55)
--- NOTE | 2019-03-26 17:44 | NUR ---
Nursing Progress Note: Legal hold:5250 Client on involuntary status for DTS/DTO. Report received from nurse with use of Laura BROWN Why are they here: Pt presented to the ER with c/o LLQ abdominal pain then divulged that the main reason she was there is that she was sent by a therapist for eval due to reports of homicidal thoughts. She has been thinking about going to [place] to kill her former therapist and bring her body back home to be near her. Raquel also reports suicidal thoughts with plan to OD. Pt has history of Bipolar. Assessment What has happened this shift: Patient complains of 8/10 abdominal pain, but there is no grimacing, guarding, or appearance of anything but mild pain. Patient will then start talking about the weather , smile and laugh a little with RN. Patient attends all groups and lightly socializes with peers. Mother called today with questions about local groups and art therapy. Delphine Espinoza was able to give them resources while here visiting. S/I, H/I: Passively suicidal. A/VH: Pt denies Sleep: 9 hrs NOC. Napped. ADL's: independent. Group attendance: yes Were meds taken:yes Any med S/E: none noted or reported Mental Status Exam Appearance: Clean, in green scrubs Eye contact: Fair, frequently avoids direct eye contact Behavior: Pt. Tends to isolate to room when not in groups or up for meals. Speech: soft, clear, normal rate and rhythm Mood: depressed, anxious Affect: Blunted. Thought process: perseveration, especially on somatic complaints Thought Content: Pt. feels ignored on pain/cramping LLQ, Cognition: A/O X 4 Insight:fair Judgment:poor Interventions PRN's used: Bentyl 10 mg Therapeutic interventions: 1:1 assessment, therapeutic conversation, medication administration/education/management, reality orientation, anxiety management, pain management, encouragement to attend groups, Q 15 min safety checks. Restraints/seclusion/emergency medication: N/A Justification of Continued Inpatient Treatment: Pt continues to be depressed, anxious and to endorse SI. She needs crisis stabilization and medication adjustment in a safe, therapeutic environment.
[2019-03-26] MEDS: mag hydrox/Alum hydrox/simeth 30ml oral suspension PO PRN (19:54)
[2019-03-26] MEDS: prazosin 1mg capsule PO SCH (19:55)
[2019-03-26 19:58] VITALS: BP 118/82
--- NOTE | 2019-03-27 01:33 | NUR ---
Nursing Progress Note: Legal hold: 5250 Client on voluntary/involuntary status for DTS/DTO. Report received from MARQUIS Betts with use of SBAR Why are they here: Pt presented to the ER with c/o LLQ abdominal pain then divulged that the main reason she was there is that she was sent by a therapist for evaluation due to reports of homicidal thoughts. She has been thinking about going to [place] to kill her former therapist and bring her body back home to be near her. Raquel also reports suicidal thoughts with plan to OD. Pt has history of Bipolar. Assessment What has happened this shift: Patient is in her bed at the change of shift, she reports R. pelvis pain today of 03/15. She say's she is suicidal and states "I feel safe here, but I don't trust myself if I go home." She reports that this is mainly due to her pain that she has been experiencing. Patient sits calmly during her assessment, no grimacing, wincing or pain visible on patients face as patient sits and moves around on her bed during assessment. She is able to get her Prazosin this evening with her BP being stable at 118/82. She remains in her room in bed the whole evening isolating to herself. She is complaint with HS medications. S/I, H/I: States she is suicidal and would not trust herself at home, but feels safe on the unit. A/VH: Denies Sleep: See sleep assessment ADL's: Independent Group attendance: No groups this shift Were meds taken: Yes Any med S/E: None observed Mental Status Exam Appearance: Clean, well groomed Eye contact: Appropriate Behavior: Calm, isolative Speech: Normal rate, volume and tone Mood: Anxious Affect: Restricted Thought process: Linear Thought Content: Without ruminations, compulsions, or delusions. Preoccupied with bowels. Cognition: Alert and Oriented Insight: Good Judgment: Fair Interventions PRN's used: SUKH Ruchi Therapeutic interventions: 1:1 assessment, maintained safe therapeutic milieu, provided active listening with positive reinforcement, medication administration, medication education, 15 min checks for safety. Restraints/seclusion/emergency medication: None Justification of Continued Inpatient Treatment: Interrupt current crisis, and prevent further decompensation. Addendum: 03/27/19 at 0140 by Jennifer Pickett RN Report received from MARQUIS Jones, neida Betts RN
[2019-03-27 07:00] VITALS: BP 104/68
[2019-03-27] MEDS: duloxetine 30mg CAPSULE.DR PO SCH (08:40)
[2019-03-27] MEDS: ibuprofen 200mg tablet PO SCH ×3 (08:40→20:35)
[2019-03-27] MEDS: divalproex sod 250mg ER (24-hour) tablet PO SCH (08:40)
[2019-03-27] MEDS: busPIRone 5mg tablet PO SCH ×3 (08:40→20:36)
[2019-03-27] MEDS: buPROPion SR 150mg tablet PO SCH (08:41)
[2019-03-27] MEDS: propranolol 10mg tablet PO SCH ×2 (08:41→20:35)
[2019-03-27] MEDS: docusate sod 100mg capsule PO SCH ×2 (08:41→20:34)
[2019-03-27] MEDS: acetaminophen 325mg tablet PO PRN (13:59)
[2019-03-27] MEDS: dicyclomine 10 MG capsule PO PRN (14:00)
[2019-03-27] MEDS: hydrOXYzine 25 MG tablet PO PRN (16:28)
[2019-03-27] MEDS: mag hydrox/Alum hydrox/simeth 30ml oral suspension PO PRN (16:28)
[2019-03-27] MEDS: PHENYLEPH/MIN OIL/PETROLAT hemorrhoid oint 57GM tube RC PRN (16:32)
--- NOTE | 2019-03-27 18:40 | NUR ---
Nursing Progress Note: Legal hold:5250 Client on involuntary status for DTS/DTO. Report received from nurse with use of Laura BROWN Why are they here: Pt presented to the ER with c/o LLQ abdominal pain then divulged that the main reason she was there is that she was sent by a therapist for eval due to reports of homicidal thoughts. She has been thinking about going to [place] to kill her former therapist and bring her body back home to be near her. Raquel also reports suicidal thoughts with plan to OD. Pt has history of Bipolar. Assessment What has happened this shift: Patient complains of 9/10 abdominal pain, Reports that she has GI pain after meals. Also complaining of hemorrhoid pain, prn provided. Patient does overstate pain frequently for attention. Patient attends groups and lightly socializes with peers. S/I, H/I: Passively suicidal. A/VH: Pt denies Sleep: 9 hrs NOC. Napped. ADL's: independent. Group attendance: yes Were meds taken:yes Any med S/E: none noted or reported Mental Status Exam Appearance: Clean, in green scrubs Eye contact: Fair, frequently avoids direct eye contact Behavior: Pt. Tends to isolate to room when not in groups or up for meals. Speech: soft, clear, normal rate and rhythm Mood: depressed, anxious Affect: Blunted. Thought process: perseveration, especially on somatic complaints Thought Content: Pt. feels ignored on pain/cramping Cognition: A/O X 4 Insight:fair Judgment:poor Interventions PRN's used: Bentyl, Tylenol, Maalox Therapeutic interventions: 1:1 assessment, therapeutic conversation, medication administration/education/management, reality orientation, anxiety management, pain management, encouragement to attend groups, Q 15 min safety checks. Restraints/seclusion/emergency medication: N/A Justification of Continued Inpatient Treatment: Pt continues to be depressed, anxious and to endorse SI. She needs crisis stabilization and medication adjustment in a safe, therapeutic environment.
[2019-03-27 19:51] VITALS: BP 145/96
[2019-03-27] MEDS: prazosin 1mg capsule PO SCH (20:36)
--- NOTE | 2019-03-27 23:30 | NUR ---
Nursing Progress Note: Legal hold:5250 Client on involuntary status for DTS/DTO. Report received from nurse with use of Omari BROWN Why are they here: Pt presented to the ER with c/o LLQ abdominal pain then divulged that the main reason she was there is that she was sent by a therapist for eval due to reports of homicidal thoughts. She has been thinking about going to [place] to kill her former therapist and bring her body back home to be near her. Raquel also reports suicidal thoughts with plan to OD. Pt has history of Bipolar. Assessment What has happened this shift: Patient talking on the phone in her bedroom at the beginning of shift in which she appeared upset. After bringing the phone out the the [employer] and this mortgage or loan underwriter asked if she was doing ok and she tearfully explained LLQ pain. She described the pain as cramping when relaxed but when strenuous, such as BM, she experienced sharp pains. Patient was able to calm with redirection and resting. When doing physical assessment she explained the scars on her arm were from a dog attack. 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 She explained the since the attack she has been experiencing A/VH of a dog growling and staring at her when she tries to sleep. The patient was able to explain to this mortgage or loan underwriter why she was admitted to the unit in which stated, "my obsession over my therapist was so strong that I just wanted to kill her and bury her my yard where I knew she'd always be close. Which made me want to kill myself because I'm not that kind of person." S/I, H/I: Passively suicidal. A/VH: A/VH of a dog growling and staring at her when she tries to sleep Sleep: asleep at this time ADL's: independent. Group attendance: no Were meds taken:yes Any med S/E: none noted or reported Mental Status Exam Appearance: Clean, in green scrubs Eye contact: Fair, frequently avoids direct eye contact Behavior: isolated to her room Speech: soft, clear, normal rate and rhythm Mood: depressed, anxious Affect: tearful Thought process: perseveration Thought Content: abdominal (LLQ) pain, dog attack Cognition: A/O X 4 Insight:fair Judgment:poor Interventions PRN's used: none at this time Therapeutic interventions: 1:1 assessment, therapeutic conversation, medication administration/education/management, reality orientation, anxiety management, pain management, encouragement to attend groups, Q 15 min safety checks. Restraints/seclusion/emergency medication: N/A Justification of Continued Inpatient Treatment: Pt continues to be depressed, anxious and to endorse SI. She needs crisis stabilization and medication adjustment in a safe, therapeutic environment.
[2019-03-28] MEDS: hydrOXYzine 25 MG tablet PO PRN (05:09)
[2019-03-28] MEDS: busPIRone 5mg tablet PO SCH ×3 (07:56→20:40)
[2019-03-28] MEDS: docusate sod 100mg capsule PO SCH ×2 (07:56→20:39)
[2019-03-28] MEDS: buPROPion SR 150mg tablet PO SCH (07:56)
[2019-03-28] MEDS: propranolol 10mg tablet PO SCH ×2 (07:56→20:39)
[2019-03-28] MEDS: duloxetine 30mg CAPSULE.DR PO SCH (07:56)
[2019-03-28] MEDS: ibuprofen 200mg tablet PO SCH ×3 (07:57→20:41)
[2019-03-28 08:00] VITALS: BP 105/66
[2019-03-28] MEDS: divalproex sod 250mg ER (24-hour) tablet PO SCH (08:02)
[2019-03-28] MEDS ORDERED: traMADol 50MG tablet PO PRN (11:35)
--- NOTE | 2019-03-28 14:06 | NUR ---
Nursing Progress Note: Legal hold:5250 Client on involuntary status for DTS/DTO. Report received from nurse with use of Jennifer BROWN RN Why are they here: Pt presented to the ER with c/o LLQ abdominal pain then divulged that the main reason she was there is that she was sent by a therapist for eval due to reports of homicidal thoughts. She has been thinking about going to [place] to kill her former therapist and bring her body back home to be near her. Raquel also reports suicidal thoughts with plan to OD. Pt has history of Bipolar. Assessment What has happened this shift: Pt c/o feeling anxious and paranoid this morning, she is also endorsing SI. Pt states her plan is to "suffocate myself or hold my breath." Asked her if she would try this here, she replied, "probably." Asked her if she were serious about this, she replied, "not that serious but I would...I'm not happy, I'm in a lot of pain, mostly heartache pain, I'm really missing [place], I'd rather than be missing her...I don't trust myself at home, I'm probably going to kill myself right when I get home... My PTSD has really affected me." Pt denied VH this morning. Notified MRAGUERITE Love of pt's suicidal statements and unwillingness to contract for safety. Pt c/o a nosebleed after breakfast. Small amount migel blood noted coming just from her right nostril, bleeding stopped with pressure from tissue. S/I, H/I: Pt denies HI, endorsing SI A/VH: Pt denies today Sleep: Pt reported sleeping well ADL's: independent. Group attendance: yes Were meds taken:yes Any med S/E: none noted or reported Mental Status Exam Appearance: [place] hair, wearing black shorts and green scrub top Eye contact: Fair, frequently avoids direct eye contact Behavior: cooperative, out of room for meals and group, mostly isolative to self Speech: soft, clear, normal rate and rhythm Mood: anxious Affect: blunted Thought process: perseveration, obsessiveness Thought Content: perseverates on heartache from missing her therapist as well as somatic complaints, perseverative SI. Cognition: A/O X 4 Insight:fair Judgment:poor Interventions PRN's used: none Therapeutic interventions: 1:1 assessment, therapeutic conversation, medication administration/education/management, encouragement to contract for safety, encouragement to attend groups, Q 15 min safety checks. Restraints/seclusion/emergency medication: N/A Justification of Continued Inpatient Treatment: Pt has perseverative SI, she continues to state she will kill herself once discharged, and does not contract for safety here. She needs monitoring and medication adjustment in a safe, therapeutic environment. Addendum: 03/30/19 at 1546 by Monica Kevin RN (Lee) CORRECTION: Pt is no longer on a 5250, she is here on voluntary status.
[2019-03-28 19:18] VITALS: BP 140/89
[2019-03-28] MEDS: prazosin 1mg capsule PO SCH (20:40)
--- NOTE | 2019-03-29 00:36 | NUR ---
Nursing Progress Note: Legal hold:5250 Client on involuntary status for DTS/DTO. Report received from nurse with use of Omari BROWN Why are they here: Pt presented to the ER with c/o LLQ abdominal pain then divulged that the main reason she was there is that she was sent by a therapist for eval due to reports of homicidal thoughts. She has been thinking about going to [place] to kill her former therapist and bring her body back home to be near her. Raquel also reports suicidal thoughts with plan to OD. Pt has history of Bipolar. Assessment What has happened this shift: Patient visible on the unit at the beginning of shift. She was smiling, talking, and walking with roommate in the jin. Patient denied having A/VH but stated it mostly appears in the shadow of a dog that attacked and mostly occurs when she's in bed. She continues to state she's frustrated with the "unknown phantom pain" in her abdomen but she explained she talked with a hospitalist during the day and she was excited that he was going to help her. she S/I, H/I: Passively suicidal. A/VH: A/VH of a dog growling and staring at her when she tries to sleep Sleep: asleep at this time ADL's: independent. Group attendance: no Were meds taken:yes Any med S/E: none noted or reported Mental Status Exam Appearance: Clean, in green scrubs Eye contact: Fair, frequently avoids direct eye contact Behavior: isolated to her room Speech: soft, clear, normal rate and rhythm Mood: depressed, anxious Affect: tearful Thought process: perseveration Thought Content: abdominal (LLQ) pain, dog attack Cognition: A/O X 4 Insight:fair Judgment:poor Interventions PRN's used: none at this time Therapeutic interventions: 1:1 assessment, therapeutic conversation, medication administration/education/management, reality orientation, anxiety management, pain management, encouragement to attend groups, Q 15 min safety checks. Restraints/seclusion/emergency medication: N/A Justification of Continued Inpatient Treatment: Pt continues to be depressed, anxious and to endorse SI. She needs crisis stabilization and medication adjustment in a safe, therapeutic environment. Addendum: 03/29/19 at 0051 by Allegra Hartley RN Nursing Progress Note: Legal hold:8775 Client on involuntary status for DTS/DTO. Report received from nurse with use of Omari BROWN Why are they here: Pt presented to the ER with c/o LLQ abdominal pain then divulged that the main reason she was there is that she was sent by a therapist for eval due to reports of homicidal thoughts. She has been thinking about going to [place] to kill her former therapist and bring her body back home to be near her. Raquel also reports suicidal thoughts with plan to OD. Pt has history of Bipolar. Assessment What has happened this shift: Patient visible on the unit at the beginning of shift. She was smiling, talking, and walking with roommate in the jin. Patient denied having A/VH but stated it mostly appears in the shadow of a dog that attacked and mostly occurs when she's in bed. She continues to state she's frustrated with the "unknown phantom pain" in her abdomen but she explained she talked with a hospitalist during the day and she was excited that he was going to help her. She appeared cheerful today as she was smiling each time this casualty underwriter seen her and chiming in when this casualty underwriter was in the room with her roommate. Patient does continue to admit to depression and does feel that if she weren't on the unit she would try to harm herself but doesn't feel she harm anyone else anymore. S/I, H/I: denie H/I, endorses S/I A/VH: denied Sleep: asleep at this time ADL's: independent. Group attendance: group room for snack Were meds taken: yes Any med S/E: none noted or reported Mental Status Exam Appearance: greasy hair, appropriate hospital attire Eye contact: Fair, frequently avoids direct eye contact Behavior: Smiling, talking and pacing the jin with roommate Speech: soft, clear, normal rate and rhythm Mood: depressed, anxious Affect: animated Thought process: perseveration, obsessive Thought Content: abdominal (LLQ) pain, dog attack Cognition: A/O X 4 Insight:fair Judgment:poor Interventions PRN's used: none at this time Therapeutic interventions: 1:1 assessment, therapeutic conversation, medication administration/education/management, reality orientation, anxiety management, pain management, encouragement to attend groups, Q 15 min safety checks. Restraints/seclusion/emergency medication: N/A Justification of Continued Inpatient Treatment: Pt continues to be depressed, anxious and to endorse SI. She needs crisis stabilization and medication adjustment in a safe, therapeutic environment.
[2019-03-29 08:00] VITALS: BP 101/65
[2019-03-29] MEDS: busPIRone 5mg tablet PO SCH ×3 (08:20→20:47)
[2019-03-29] MEDS: ibuprofen 200mg tablet PO SCH ×3 (08:20→20:47)
[2019-03-29] MEDS: duloxetine 30mg CAPSULE.DR PO SCH (08:20)
[2019-03-29] MEDS: propranolol 10mg tablet PO SCH ×2 (08:20→20:47)
[2019-03-29] MEDS: divalproex sod 250mg ER (24-hour) tablet PO SCH (08:20)
[2019-03-29] MEDS: buPROPion SR 150mg tablet PO SCH (08:20)
[2019-03-29] MEDS: docusate sod 100mg capsule PO SCH ×2 (08:20→20:47)
[2019-03-29] MEDS: mag hydrox/Alum hydrox/simeth 30ml oral suspension PO PRN (12:00)
[2019-03-29] MEDS: PHENYLEPH/MIN OIL/PETROLAT hemorrhoid oint 57GM tube RC PRN (12:07)
--- NOTE | 2019-03-29 14:16 | NUR ---
Nursing Progress Note: Legal hold:5250 Client on involuntary status for DTS/DTO. Report received from nurse with use of SBAR, Johanny Wallace RN Why are they here: Pt presented to the ER with c/o LLQ abdominal pain then divulged that the main reason she was there is that she was sent by a therapist for eval due to reports of homicidal thoughts. She has been thinking about going to [place] to kill her former therapist and bring her body back home to be near her. Raquel also reports suicidal thoughts with plan to OD. Pt has history of Bipolar. Assessment What has happened this shift: Pt stated that her depression is worse today rated it at an 8/10. She contracted for safety here today but stated that if she went home that she would OD. Pt rated her anxiety at a 9/10. Pt c/o LLQ, RLQ, left hip and left groin pain. Pt states the pains are sharp and intermittent but also crampy at times. Pt reported a soft formed BM last night and one today as well. Pt states the pain is worse after BMs. c/o some nausea after her BM. Pt also c/o hemorrhoid pain. She continues on routine ibuprofen 600 mg TID, administered prn Maalox and hemorrhoid ointment at 1200 with good effect. Pt was started on Abilify today. S/I, H/I: Pt denies HI, endorsing SI if she were to go home A/VH: Pt denies Sleep: Pt slept 8.5 hours per noc shift report ADL's: independent. Group attendance: yes Were meds taken:yes Any med S/E: none noted or reported Mental Status Exam Appearance: [place] hair, wearing black shorts and green scrub top; pt states she will shower today Eye contact: Fair, frequently avoids direct eye contact Behavior: cooperative, out of room for meals and group, socializes with roommate and select peers Speech: soft, clear, normal rate and rhythm Mood: depressed Affect: blunted Thought process: perseveration Thought Content: perseverates on multiple somatic complaints Cognition: A/O X 4 Insight:poor Judgment:poor Interventions PRN's used: Maalox, hemorrhoid ointment Therapeutic interventions: 1:1 assessment, therapeutic conversation, medication administration/education/management, encouragement to perform personal hygiene, encouragement to attend groups, Q 15 min safety checks. Restraints/seclusion/emergency medication: N/A Justification of Continued Inpatient Treatment: Pt continues to c/o depression and anxiety, she has perseverative SI, she continues to state she will kill herself once discharged, she has multiple somatic complaints. She needs monitoring and medication adjustment in a safe, therapeutic environment. Addendum: 03/30/19 at 1546 by Monica Kevin RN (Lee) CORRECTION: PT IS VOLUNTARY, NOT ON A 5250.
[2019-03-29 20:03] VITALS: BP 128/82
[2019-03-29] MEDS: prazosin 1mg capsule PO SCH (20:47)
--- NOTE | 2019-03-29 22:09 | NUR ---
Nursing Progress Note: Legal hold:5250 Client on involuntary status for DTS/DTO. Report received from nurse with use of Omari BROWN CRN Why are they here: Pt presented to the ER with c/o LLQ abdominal pain then divulged that the main reason she was there is that she was sent by a therapist for eval due to reports of homicidal thoughts. She has been thinking about going to [place] to kill her former therapist and bring her body back home to be near her. Raquel also reports suicidal thoughts with plan to OD. Pt has history of Bipolar. Assessment What has happened this shift: Patient laying in bed at the beginning of shift. Pleasant and cooperative with medications and assessment. She continues to explain her happiness to have the hospitalist looking into her abdominal pain. Patient denied VH of the dog that attacked her but she continues to hear him growl. Patient c/o depression and endorses SI stating that she has a plan to overdose. Patient denied H/I but explained her depression is R/T missing her therapist. Patient has remained isolated to her room at this time. S/I, H/I: Pt denies HI, endorsing SI if she were to go home A/VH: Pt denies Sleep: asleep at this time ADL's: independent. Group attendance: no Were meds taken:yes Any med S/E: none noted or reported Mental Status Exam Appearance: wearing black shorts and green scrub top, disheveled Eye contact: Fair, frequently avoids direct eye contact Behavior: isolated to room Speech: soft, clear, normal rate and rhythm Mood: depressed Affect: congruent to mood Thought process: perseveration Thought Content: perseverates on multiple somatic complaints Cognition: A/O X 4 Insight:poor Judgment:poor Interventions PRN's used: none at this time Therapeutic interventions: 1:1 assessment, therapeutic conversation, medication administration/education/management, encouragement to perform personal hygiene, encouragement to attend groups, Q 15 min safety checks. Restraints/seclusion/emergency medication: N/A Justification of Continued Inpatient Treatment: Pt continues to c/o depression and anxiety, she has perseverative SI, she continues to state she will kill herself once discharged, she has multiple somatic complaints. She needs monitoring and medication adjustment in a safe, therapeutic environment.
[2019-03-30] MEDS: ibuprofen 200mg tablet PO SCH ×3 (07:56→20:34)
[2019-03-30] MEDS: docusate sod 100mg capsule PO SCH ×2 (07:56→20:33)
[2019-03-30] MEDS: divalproex sod 250mg ER (24-hour) tablet PO SCH (07:57)
[2019-03-30] MEDS: busPIRone 5mg tablet PO SCH ×3 (07:57→20:34)
[2019-03-30] MEDS: propranolol 10mg tablet PO SCH ×2 (07:57→20:34)
[2019-03-30] MEDS: buPROPion SR 150mg tablet PO SCH (07:57)
[2019-03-30] MEDS: duloxetine 30mg CAPSULE.DR PO SCH (07:57)
[2019-03-30 08:11] VITALS: BP 132/81
[2019-03-30] MEDS: mag hydrox/Alum hydrox/simeth 30ml oral suspension PO PRN (12:58)
[2019-03-30] MEDS: dicyclomine 10 MG capsule PO PRN (12:59)
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
--- NOTE | 2019-03-30 16:01 | NUR ---
CORRECT NURSING PROGRESS NOTE FOR 03/30/19 AM SHIFT: Legal hold: N/A Client on voluntary status Report received from nurse with use of lAlegra BROWN LVN Why are they here: Pt presented to the ER with c/o LLQ abdominal pain then divulged that the main reason she was there is that she was sent by a therapist for eval due to reports of homicidal thoughts. She has been thinking about going to [place] to kill her former therapist and bring her body back home to be near her. Raquel also reports suicidal thoughts with plan to OD. Pt has history of Bipolar. Assessment What has happened this shift: Pt stated that her depression was "much better today." When asked her to give it a number on a 1 to 10 scale, she rated it a 6/10. Pt denied SI though did state that "I still don't know, if I were to go home." Discussed formulating a safety plan for what she could do distract herself and remain safe when she goes home. Pt rated her anxiety at an 8/10 today, reported that she did not feel that the Buspar was helpful. Pt c/o feeling nauseous and crampy after having a BM before lunch. Medicated with prn Maalox and Bentyl with good effect. Discussed previous diagnosis of IBS and how it can flare up during times of stress. A PCT that was here the other day reported that she had seen pt's stool in toilet and it was strange looking, greenish and mucousy. Asked pt to not flush after next bowel movement and let nurse know so stool can be assessed. S/I, H/I: Pt denies although states that she is still not sure if she would not become suicidal once discharged. A/VH: Pt denies Sleep: Pt slept well per noc shift report, napped after lunch ADL's: independent. Group attendance: yes Were meds taken:yes Any med S/E: none noted or reported Mental Status Exam Appearance: clean, dressed in shorts and clean green scrub top with too big pink and black slides (shoes) another pt gave her Eye contact: improved today; good Behavior: Pleasant, cooperative Speech: soft, clear, normal rate and rhythm Mood: anxious Affect: blunted with intermittent mild distress/pained look Thought process: linear Thought Content: Does not feel Buspar is working for anxiety, concerned about ongoing abdominal/pelvic pain especially with bowel movements, still unsure if she would be safe if discharged home Cognition: A/O X 4 Insight: fair Judgment: fair Interventions PRN's used: Ruchi Damon Therapeutic interventions: 1:1 assessment, therapeutic conversation, medication administration/education/management, encouragement to attend groups, discussed possibility of formulating a safety plan with SW previous to discharge, GI education, Q 15 min safety checks. Restraints/seclusion/emergency medication: N/A Justification of Continued Inpatient Treatment: Pt has improved though is still unsure if she would be safe for discharge, anxiety remains high and pt continues to c/o of abdominal and pelvic pain. She needs monitoring and medication adjustment in a safe, therapeutic environment to prevent decompensation and readmission.
[2019-03-30] MEDS: hydrOXYzine 25 MG tablet PO PRN (17:27)
[2019-03-30 19:57] VITALS: BP 130/80
[2019-03-30] MEDS: prazosin 1mg capsule PO SCH (20:34)
[2019-03-30] MEDS: magnesium hydroxide 30ml (MOM) UD suspension PO PRN (20:39)
--- NOTE | 2019-03-30 22:42 | NUR ---
Nursing Progress Note: Legal hold:VOL Report received from nurse with use of Omari BROWN CRN Why are they here: Pt presented to the ER with c/o LLQ abdominal pain then divulged that the main reason she was there is that she was sent by a therapist for eval due to reports of homicidal thoughts. She has been thinking about going to [place] to kill her former therapist and bring her body back home to be near her. Raquel also reports suicidal thoughts with plan to OD. Pt has history of Bipolar. Assessment What has happened this shift: Patient in room at the start of the shift, she was coloring as a way to deal with her anxiety(also received PRN on days which she stated helped), she remained in room the entire shift except to come out for snacks and then returned to her room. She continues to deny thoughts of suicide here, but states she would not feel safe if she was to return home. Continues to deny thoughts of homicide, but still desires to have a wax figure of her therapist because she misses her. Continues to endorse pain to pelvis and lower abdominal region, MOM given for c/o constipation. S/I, H/I: denies S/I here but would feel unsafe at home, denies H/I A/VH: Pt denies Sleep: sleeping well, still c/o nightmares of the dog attack ADL's: independent. Group attendance: no groups this shift, attended HS snacks Were meds taken:yes Any med S/E: none noted or reported Mental Status Exam Appearance: lying in bed, wearing hospital scrubs, grooming fair Eye contact: Fair Behavior: isolative, cooperative with assessment Speech: soft, clear, normal rate and rhythm Mood: depressed Affect: depressed Thought process: linear Thought Content: continues to focus on somatic c/o Cognition: A/O X 4 Insight:poor Judgment:poor Interventions PRN's used: MOM Therapeutic interventions: 1:1 assessment, medication administration/assessment of effects/side effects, Q 15 min safety checks. Restraints/seclusion/emergency medication: N/A Justification of Continued Inpatient Treatment: Pt continues to c/o depression and anxiety, she has perseverative SI, she continues to state she will kill herself once discharged, she has multiple somatic complaints. She needs monitoring and medication adjustment in a safe, therapeutic environment.
[2019-03-31] MEDS: mag hydrox/Alum hydrox/simeth 30ml oral suspension PO PRN (03:25)
[2019-03-31] MEDS: hydrOXYzine 25 MG tablet PO PRN (03:26)
[2019-03-31 08:00] VITALS: BP 111/74
[2019-03-31] MEDS: busPIRone 5mg tablet PO SCH ×3 (08:36→20:21)
[2019-03-31] MEDS: buPROPion SR 150mg tablet PO SCH (08:37)
[2019-03-31] MEDS: docusate sod 100mg capsule PO SCH ×2 (08:37→20:22)
[2019-03-31] MEDS: propranolol 10mg tablet PO SCH ×2 (08:37→20:21)
[2019-03-31] MEDS: duloxetine 30mg CAPSULE.DR PO SCH (08:37)
[2019-03-31] MEDS: divalproex sod 250mg ER (24-hour) tablet PO SCH (08:37)
[2019-03-31] MEDS: ibuprofen 200mg tablet PO SCH ×3 (08:37→20:22)
--- NOTE | 2019-03-31 14:41 | NUR ---
Reassessment: great appetite 75-100% PO intake, meeting nutrition needs needing no nutrition intervention at this time. Recommend: 1. Consider heart healthy diet in view of elevated LDL and TG, d/w RN to discuss with MD 2. weekly wts Addendum: 03/31/19 at [address] Amended: Links added.
--- NOTE | 2019-03-31 17:44 | NUR ---
Nursing Progress Note: Legal hold: N/A Client on voluntary status Report received from nurse with use of Allegra BROWN LVN Why are they here: Pt presented to the ER with c/o LLQ abdominal pain then divulged that the main reason she was there is that she was sent by a therapist for eval due to reports of homicidal thoughts. She has been thinking about going to [place] to kill her former therapist and bring her body back home to be near her. Raquel also reports suicidal thoughts with plan to OD. Pt has history of Bipolar. Assessment What has happened this shift: Pt spent much of the day in her room. In am, pt up for breakfast and appeared somewhat bright. After breakfast, pt asked to speak with this RN and she was very tearful and stated she felt overwhelming depression and was having bad suicidal thoughts. After processing for a while, pt asked RN to pray for her and after was able to go to group. Later, pt was in her room drawing and stated she felt a little better. Pt stated she had been constipated and had received MOM. Pt states she has seen results and is no longer constipated. S/I, H/I: Pt denies HI, endorsing SI if she were to go home A/VH: Pt denies Sleep: no naps today. ADL's: independent. Group attendance: partial Were meds taken:yes Any med S/E: none noted or reported Mental Status Exam Appearance: [place] hair, wearing black shorts and green scrub top; pt states she will shower today Eye contact: Fair, frequently avoids direct eye contact Behavior: cooperative, out of room for meals and group, socializes with roommate and select peers Speech: soft, clear, normal rate and rhythm Mood: depressed Affect: blunted Thought process: perseveration Thought Content: perseverates on multiple somatic complaints Cognition: A/O X 4 Insight:poor Judgment:poor Interventions PRN's used: Therapeutic interventions: 1:1 assessment, therapeutic conversation, medication administration/education/management, encouragement to perform personal hygiene, encouragement to attend groups, Q 15 min safety checks. Restraints/seclusion/emergency medication: N/A Justification of Continued Inpatient Treatment: Pt continues to c/o depression and anxiety, she has perseverative SI, she continues to state she will kill herself once discharged, she has multiple somatic complaints. She needs monitoring and medication adjustment in a safe, therapeutic environment.
[2019-03-31] MEDS: prazosin 1mg capsule PO SCH (20:22)
[2019-03-31] MEDS: magnesium hydroxide 30ml (MOM) UD suspension PO PRN (20:22)
[2019-03-31 20:46] VITALS: BP 158/98
--- NOTE | 2019-03-31 21:39 | NUR ---
Nursing Progress Note: Legal hold:VOL Report received from nurse with use of Omari BROWN CRN Why are they here: Pt presented to the ER with c/o LLQ abdominal pain then divulged that the main reason she was there is that she was sent by a therapist for eval due to reports of homicidal thoughts. She has been thinking about going to [place] to kill her former therapist and bring her body back home to be near her. Raquel also reports suicidal thoughts with plan to OD. Pt has history of Bipolar. Assessment What has happened this shift: Patient isolates to her room the entirety of the shift. She is observed socializing with her roommate. PT said she had "an okay day, it was rough for awhile, I was journaling and I just started thinking about homicidal things and it was giving me pleasure. I really miss my therapist." She also said she is still having anxiety regarding dogs and seeing shadows and thinking it is a dog's tail or feet. Continues to endorse pain to pelvis and lower abdominal region, MOM given for c/o constipation. S/I, H/I: denies S/I here but would feel unsafe at home, denies H/I A/VH: Pt denies Sleep: see sleep assessment notation ADL's: independent. Group attendance: no groups this shift, attended HS snacks Were meds taken:yes Any med S/E: none noted or reported Mental Status Exam Appearance: lying in bed, wearing hospital scrubs, grooming fair Eye contact: Fair Behavior: isolative, cooperative with assessment Speech: soft, clear, normal rate and rhythm Mood: depressed Affect: depressed Thought process: linear Thought Content: continues to focus on somatic c/o Cognition: A/O X 4 Insight:poor Judgment:poor Interventions PRN's used: MOM Therapeutic interventions: 1:1 assessment, medication administration/assessment of effects/side effects, Q 15 min safety checks. Restraints/seclusion/emergency medication: N/A Justification of Continued Inpatient Treatment: Pt continues to c/o depression and anxiety, she has perseverative SI, she continues to state she will kill herself once discharged, she has multiple somatic complaints. She needs monitoring and medication adjustment in a safe, therapeutic environment.
[2019-04-01 07:58] VITALS: BP 115/68
[2019-04-01] MEDS: docusate sod 100mg capsule PO SCH ×2 (08:02→20:05)
[2019-04-01] MEDS: ibuprofen 200mg tablet PO SCH ×3 (08:02→20:03)
[2019-04-01] MEDS: busPIRone 5mg tablet PO SCH ×3 (08:03→20:05)
[2019-04-01] MEDS: duloxetine 30mg CAPSULE.DR PO SCH (08:03)
[2019-04-01] MEDS: buPROPion SR 150mg tablet PO SCH (08:03)
[2019-04-01] MEDS: propranolol 10mg tablet PO SCH ×2 (08:03→20:03)
[2019-04-01] MEDS: divalproex sod 250mg ER (24-hour) tablet PO SCH (08:23)
--- NOTE | 2019-04-01 11:13 | NUR ---
Nursing Progress Note: Raquel Legal hold:VOL Report received from Laura Why are they here: Pt presented to the ER with c/o LLQ abdominal pain then divulged that the main reason she was there is that she was sent by a therapist for eval due to reports of homicidal thoughts. She has been thinking about going to [place] to kill her former therapist and bring her body back home to be near her. Raquel also reports suicidal thoughts with plan to OD. Pt has history of Bipolar. Assessment What has happened this shift: Patient in bed to start the shift, Currently resting with eyes closed and even, unlabored respirations noted. Compliant with am assessment and medications. No somatic complaints this morning. Client came to breakfast and socialized with staff as well as her peer group. She denies H/I today. Client is anticipating discharge today. S/I, H/I: denies S/I here but would feel unsafe at home, denies H/I A/VH: Pt denies Sleep: see sleep assessment notation ADL's: independent. Group attendance: Were meds taken: yes Any med S/E: none noted or reported Mental Status Exam Appearance: lying in bed, wearing hospital scrubs, grooming fair Eye contact: Fair Behavior: isolative, cooperative with assessment Speech: soft, clear, normal rate and rhythm Mood: depressed Affect: depressed Thought process: linear Thought Content: Cognition: A/O X 4 Insight:poor Judgment:poor Interventions PRN's used: Therapeutic interventions: 1:1 assessment, medication administration/assessment of effects/side effects, Q 15 min safety checks. Restraints/seclusion/emergency medication: N/A Justification of Continued Inpatient Treatment: Pt continues to c/o depression and anxiety, she has perseverative SI, she continues to state she will kill herself once discharged, she has multiple somatic complaints. She needs monitoring and medication adjustment in a safe, therapeutic environment.
--- NOTE | 2019-04-01 16:12 | NUR ---
Progress note: Client will not discharge today and will stay, "a few more days" in order to make sure she is safe upon discharge. Client had reservations about her safety when approached with idea of dc today. Client stated, " I feel safe here but not at home".
[2019-04-01] MEDS: albuterol 2.5 MG/3 ML nebule NEB PRN (20:28)
[2019-04-01 20:45] VITALS: BP 128/94
[2019-04-01] MEDS: prazosin 1mg capsule PO SCH (21:51)
--- NOTE | 2019-04-01 23:03 | NUR ---
Nursing Progress Note: Legal hold:VOL Report received from nurse with use of Omari BROWN CRN Why are they here: Pt presented to the ER with c/o LLQ abdominal pain then divulged that the main reason she was there is that she was sent by a therapist for eval due to reports of homicidal thoughts. She has been thinking about going to [place] to kill her former therapist and bring her body back home to be near her. Raquel also reports suicidal thoughts with plan to OD. Pt has history of Bipolar. Assessment What has happened this shift: Patient is observed walking the halls and talking with her roommate at shift change, then returns to her room for the entirety of the shift. She says "I think they might just be trying to discharge me because they are sick of hearing about my pelvic pain." Grounds Cleaner reassures pt that this is not the case, and listens to her concerns. Pt requests PRN nebulizer tx because she feels like it helps calm her nerves. Continues to endorse pain in pelvis, but feels like it has shifted from the LLQ to the RLQ, she said the scheduled dose of 600 mg motrin has been helping this pain. Pt said she tossed and turned last night while sleeping and heard growling next to her bed. She does feel like the minipress is helping at night, because she hasn't been having as many nightmares. S/I, H/I: denies S/I here but would feel unsafe at home, denies H/I A/VH: Pt said she heard growling next to her bed last night Sleep: see sleep assessment notation ADL's: independent. Group attendance: no groups this shift, attended HS snacks Were meds taken:yes Any med S/E: none noted or reported Mental Status Exam Appearance: lying in bed, wearing hospital scrubs, grooming fair Eye contact: Fair Behavior: isolative, cooperative with assessment Speech: soft, clear, normal rate and rhythm Mood: depressed Affect: depressed Thought process: linear Thought Content: continues to focus on somatic c/o Cognition: A/O X 4 Insight:poor Judgment:poor Interventions PRN's used: PRN nebulizer Therapeutic interventions: 1:1 assessment, medication administration/assessment of effects/side effects, Q 15 min safety checks. Restraints/seclusion/emergency medication: N/A Justification of Continued Inpatient Treatment: Pt continues to c/o depression and anxiety, she has multiple somatic complaints, and cannot assure her safety once she leaves. She needs monitoring and medication adjustment in a safe, therapeutic environment.
[2019-04-02 08:27] VITALS: BP 107/66
[2019-04-02] MEDS: docusate sod 100mg capsule PO SCH ×2 (08:44→20:12)
[2019-04-02] MEDS: buPROPion SR 150mg tablet PO SCH (08:45)
[2019-04-02] MEDS: duloxetine 30mg CAPSULE.DR PO SCH (08:45)
[2019-04-02] MEDS: propranolol 10mg tablet PO SCH ×2 (08:45→20:12)
[2019-04-02] MEDS: divalproex sod 250mg ER (24-hour) tablet PO SCH (08:45)
[2019-04-02] MEDS: ibuprofen 200mg tablet PO SCH ×3 (08:45→20:12)
[2019-04-02] MEDS: busPIRone 5mg tablet PO SCH ×3 (08:46→20:12)
[2019-04-02] MEDS: dicyclomine 10 MG capsule PO PRN (13:13)
[2019-04-02] MEDS: mag hydrox/Alum hydrox/simeth 30ml oral suspension PO PRN (13:15)
--- NOTE | 2019-04-02 15:39 | NUR ---
Bone Puller 1:1 The undersigned addiction social worker met individaully with pt. per request from treatment team. Intervention= attuned empathic listening using biolateral sound. Pt. reports a reduction in her distress level from a 5 to 0 felt in her chest. Additionally the undersigned addiction social worker collaborated with pts outpatient therapist who reports her next appt is Sunday at 10:00. Discussed the intervention to reduce distress as well as resources for outside support group. Plan= Continue to collaborate with treatment team and support pt. Mary MUÑOZ
--- NOTE | 2019-04-02 17:16 | NUR ---
DISCHARGE PLANNING: Phoned Charles Johns. @ to reschedule pt's psyc. appt., as pt's current appt. was for tomorrow @ 10:30AM. Aye schedules her own appt.s, waiting for her to phone back w/new appt. date & time. JORGE Black
--- NOTE | 2019-04-02 17:17 | NUR ---
Nursing Progress Note: Raquel Legal hold:VOL Report received from merritt Sanchez RN. Why are they here: Pt presented to the ER with c/o LLQ abdominal pain then divulged that the main reason she was there is that she was sent by a therapist for eval due to reports of homicidal thoughts. She has been thinking about going to [place] to kill her former therapist and bring her body back home to be near her. Raquel also reports suicidal thoughts with plan to OD. Pt has history of Bipolar. Assessment What has happened this shift: Patient was up at change of shift but laid back down before breakfast. Patient was interacting with peers at breakfast then went back to her room. RN found patient in her room coloring in an adult coloring book. Patient states she is feeling better and denies SI/HI and only "slightly" depressed. Patient c/o abdominal pain just before before lunch. RN gave patient Bentyl and Maalox at lunch and patient felt better. Patient to be discharged in the next couple to days. S/I, H/I: denies S/I and H/I A/VH: Pt denies Sleep: a couple of short naps ADL's: independent. Group attendance: yes Were meds taken: yes Any med S/E: none noted or reported Mental Status Exam Appearance: neat and wearing hospital scrubs Eye contact: good Behavior: more engaging and cooperative with assessment Speech: soft, clear, normal rate and rhythm Mood: pleasant Affect: flat Thought process: linear Thought Content: going home and wondering how will she feel at home. Cognition: A/O X 4 Insight: fair Judgment: fair Interventions PRN's used: Nico Hopper Therapeutic interventions: 1:1 assessment, medication administration/assessment of effects/side effects, Q 15 min safety checks. Restraints/seclusion/emergency medication: N/A Justification of Continued Inpatient Treatment: Pt continues to c/o depression and anxiety, she has perseverative SI, she continues to state she will kill herself once discharged, she has multiple somatic complaints. She needs monitoring and medication adjustment in a safe, therapeutic environment.
[2019-04-02] MEDS: prazosin 1mg capsule PO SCH (20:12)
[2019-04-02] MEDS: albuterol 2.5 MG/3 ML nebule NEB PRN (20:30)
[2019-04-02 20:55] VITALS: BP 127/74
[2019-04-02] MEDS: LORazepam 1 MG tablet PO PRN (21:59)
--- NOTE | 2019-04-02 23:38 | NUR ---
NURSING NOTE PT was pleasant on approach and talked about group today and coloring in her coloring books to help with her anxiety. She was medication compliant and requested a PRN nebulizer Tx which was done by respiratory. Pt stated the nebulizer tx helps her feel less anxious and prepares her for the nighttime. at 21:55 Film Critic had come back into the room to assist pt's roommate when advertising writer observed Raquel standing in front of her sink brushing her teeth with the lights off. Raquel then suddenly let out a scream and backed away from the sink, brought herself down to the floor until her buttock was almost on the ground, then threw her arms out to the side and laid down on her back and said she saw a black dog in the corner of the room near the sink and it scared her. PT then began crying and saying "I swore I saw the dog." Film Critic turned the lights on and helped pt to her feet. Film Critic reassured pt that there was no dog in her room. Pt continued to cry and say she saw a dog. PT was given 1mg ativan at 21:59. Pt said that when she fell she hit the back of her head. Film Critic witnessed the event but did not see pt hit her head as p stated. Pt's posterior head assessed, no red haro or swelling. PT states she is not dizzy but she now has a headache. Vitals done : T:98.9 HR: 92 BP: 134/84 resp 14. Physician called and notified of fall. Q4 neuro checks initiated.
[2019-04-03] MEDS: acetaminophen 325mg tablet PO PRN (00:06)
[2019-04-03] MEDS: mag hydrox/Alum hydrox/simeth 30ml oral suspension PO PRN (00:06)
[2019-04-03 07:52] VITALS: BP 110/77
[2019-04-03] MEDS: ibuprofen 200mg tablet PO SCH ×3 (08:17→20:40)
[2019-04-03] MEDS: busPIRone 5mg tablet PO SCH ×3 (08:17→20:40)
[2019-04-03] MEDS: propranolol 10mg tablet PO SCH ×2 (08:18→20:40)
[2019-04-03] MEDS: docusate sod 100mg capsule PO SCH ×2 (08:19→20:40)
[2019-04-03] MEDS: duloxetine 30mg CAPSULE.DR PO SCH (08:20)
[2019-04-03] MEDS: buPROPion SR 150mg tablet PO SCH (08:20)
[2019-04-03] MEDS: divalproex sod 250mg ER (24-hour) tablet PO SCH (08:20)
--- NOTE | 2019-04-03 17:20 | NUR ---
Nursing Progress Note: Legal hold:VOL Report received from merritt Sanchez RN. Why are they here: Pt presented to the ER with c/o LLQ abdominal pain then divulged that the main reason she was there is that she was sent by a therapist for eval due to reports of homicidal thoughts. She has been thinking about going to [place] to kill her former therapist and bring her body back home to be near her. Raquel also reports suicidal thoughts with plan to OD. Pt has history of Bipolar. Assessment What has happened this shift: Patient was asleep at change of shift and RN awoke patient for breakfast. Patient was interacting with peers at breakfast then went back to her room. Patient states she is a little depressed but looking forward to going home. Patient denies SI/HI. Patient did not have any neuro deficits today. After afternoon group patient stated she felt dizzy and RN walked patient back to her room to lay down. After a while patient up and walking around. Patient is planning on going home tomorrow. S/I, H/I: denies S/I and H/I A/VH: Pt denies Sleep: cat naps ADL's: independent. Group attendance: yes Were meds taken: yes Any med S/E: none noted or reported Mental Status Exam Appearance: greasy hair and wearing hospital scrubs Eye contact: good Behavior: pleasant Speech: soft, clear, normal rate and rhythm Mood: calm Affect: flat Thought process: linear Thought Content: going home Cognition: A/O X 4 Insight: fair Judgment: fair Interventions PRN's used: Nico Hopper Therapeutic interventions: 1:1 assessment, medication administration/assessment of effects/side effects, Q 15 min safety checks. Restraints/seclusion/emergency medication: N/A Justification of Continued Inpatient Treatment: Pt continues to c/o depression and anxiety, she has perseverative SI, she continues to state she will kill herself once discharged, she has multiple somatic complaints. She needs monitoring and medication adjustment in a safe, therapeutic environment.
[2019-04-03 20:05] VITALS: BP 120/90
[2019-04-03] MEDS: prazosin 1mg capsule PO SCH (20:40)
[2019-04-03 21:10] VITALS: BP 159/96
--- NOTE | 2019-04-03 21:10 | NUR ---
Her bathroom call light, went in room to check on patient. She was found to be laying on the bathroom floor. Patient was alert and oriented and able to move herself to a sitting position. Patient was examined and no injury was noted. KIMI Dinh patients nurse was notified at this time. Patient assisted to her bed, vital signs obtained. KIMI Dinh notified Harjit Love of the fall.
[2019-04-03 22:00] VITALS: BP 137/87
[2019-04-04] VITALS: BP 106/55
[2019-04-04 02:37] VITALS: BP 100/54
--- NOTE | 2019-04-04 04:06 | NUR ---
Nursing Progress Note: Legal hold:VOL Report received from nurse with use of Roxane BROWN CRN Why are they here: Pt presented to the ER with c/o LLQ abdominal pain then divulged that the main reason she was there is that she was sent by a therapist for eval due to reports of homicidal thoughts. She has been thinking about going to [place] to kill her former therapist and bring her body back home to be near her. Raquel also reports suicidal thoughts with plan to OD. Pt has history of Bipolar. Assessment What has happened this shift: Patient in her room talking on the phone at the beginning of shift. Patient isolated to her room this shift. Compliant with medications and assessment. The unit was busy with patients yelling, patients being discharged and visitors leaving when the patient's call light went off. The call light was promptly answered by MARQUIS Rodriguez. The patient was found laying on the bathroom floor, alert and oriented, and able to move. Jennifer notified this entry writer and patient was able to stand and walk to her bed. No injuries noted and VSS. Harjit Love was notified by this entry writer and neuro checks and q2hr VS initiated. The event took place shortly after receiving her HS medications. No abnormal VS noted, no abnormal neuro checks noted. It is found that the fall was behavioral as patient does not want to leave the unit AEB the conversation that took place between this entry writer and the patient earlier in the shift. During the patient assessment this entry writer asked if she felt she is safe to go home. The patient responded her home is definitely a safe place but she continued to explain she needed to "stay out of her own head." This entry writer then asked if she lived with anyone and she stated she lives with her parents. This entry writer proceeded to ask if they were good people to talk to when she felt frightened over "boogie." She then shrugged and explained that they don't understand her situation and get frustrated with her. Shortly after this conversation her roommate left the room and she pressed her call light and was found on the bathroom floor. S/I, H/I: denied A/VH: denied Sleep: asleep at this time ADL's: independent. Group attendance: no Were meds taken:yes Any med S/E: none noted or reported Mental Status Exam Appearance: lying in bed, wearing hospital scrubs, grooming fair Eye contact: Fair Behavior: isolative, cooperative with assessment Speech: soft, clear, normal rate and rhythm Mood: depressed Affect: depressed Thought process: linear Thought Content: discharge Cognition: A/O X 4 Insight:poor Judgment:poor Interventions PRN's used: none Therapeutic interventions: 1:1 assessment, medication administration/assessment of effects/side effects, Q 15 min safety checks. Restraints/seclusion/emergency medication: N/A Justification of Continued Inpatient Treatment: Pt continues to c/o depression and anxiety, she has multiple somatic complaints, and cannot assure her safety once she leaves. She needs monitoring and medication adjustment in a safe, therapeutic environment.
[2019-04-04 05:08] VITALS: BP 97/50
[2019-04-04 07:42] VITALS: BP 111/66
[2019-04-04] MEDS ORDERED: BUSP5TAB26 PO (09:05)
[2019-04-04] MEDS ORDERED: ARIP2TAB20 PO (09:05)
[2019-04-04] MEDS ORDERED: DULO30CA52 PO (09:05)
[2019-04-04] MEDS ORDERED: DICY10CA88 PO (09:05)
[2019-04-04] MEDS ORDERED: DIVA250T8 PO (09:05)
[2019-04-04] MEDS ORDERED: HYDR-3686 PO (09:05)
[2019-04-04] MEDS ORDERED: PRAZ1CAP5 PO (09:05)
[2019-04-04] MEDS: buPROPion SR 150mg tablet PO SCH (09:20)
[2019-04-04] MEDS: propranolol 10mg tablet PO SCH (09:21)
[2019-04-04] MEDS: ibuprofen 200mg tablet PO SCH (09:21)
[2019-04-04] MEDS: docusate sod 100mg capsule PO SCH (09:22)
[2019-04-04] MEDS: busPIRone 5mg tablet PO SCH (09:23)
[2019-04-04] MEDS: duloxetine 30mg CAPSULE.DR PO SCH (09:25)
[2019-04-04] MEDS ORDERED: divalproex sod 250mg ER (24-hour) tablet PO ONE (09:35)
--- NOTE | 2019-04-04 11:36 | NUR ---
Nursing Discharge Note: Pt discharged to home at 1055 and left unitt accompanied by her mother and was escorted to the lobby by Corrina Door Repairman. Pt was calm, pleasant and cooperative and denied SI. Pt has been improving since admission and currently in no acute physical or emotional distress. Pt's valuables and belongings inventoried by Corrina [employer], and returned to her. Pt did not need nicotine replacement and understands her discharge f/u plans and appointments.
[2019-04-05] MEDS ORDERED: divalproex sod 250mg ER (24-hour) tablet PO SCH (08:30)
[2019-04-05] MEDS ORDERED: DIPH25CA83 PO (13:42)
[2019-04-05] MEDS ORDERED: BUSP5TAB3 PO (13:42)
== END 2019-04-04 10:55 | disposition home or self-care (01) | DRG 753 ==
LOC: ADULT MH 13:53
PROVIDERS: ADMIT Psychiatry & Neurology Psychiatry; ATTEND Psychiatry & Neurology Psychiatry
DX: F31.9 Bipolar disorder, unspecified (principal); R45.851 Suicidal ideations; R45.850 Homicidal ideations; K59.00 Constipation, unspecified; J45.909 Unspecified asthma, uncomplicated; F41.9 Anxiety disorder, unspecified; F43.12 Post-traumatic stress disorder, chronic; R10.32 Left lower quadrant pain; F42.9 Obsessive-compulsive disorder, unspecified; G47.30 Sleep apnea, unspecified; Z79.899 Other long term (current) drug therapy
CPT/HCPCS: 36415; 80061; 80164; 83036; 85025; 87081; 94640; 94760; 99285; J1885; Z7610

== ENCOUNTER 2019-04-05 01:05 | Inpatient (IN) | payer MEDICAID ==
[~2019-04-05] VITALS: Ht 152.4 cm; Wt 79.5 kg
[~2019-04-05 01:05] MED LIST changes: +ALBU8HFA PO; +ARIP2TAB20 PO; -BUSP15TA3 PO; +BUSP5TAB26 PO; +DICY10CA88 PO; +DIVA250T8 PO; -DULO-31 PO; +DULO30CA52 PO; +HYDR-3686 PO
--- NOTE | 2019-04-05 01:30 | NUR ---
According to EMS, Pt ingested 14 tabs of 15 mg buspirone, 21 tabs of 250 mg divalproex ER, 7 tabs 1 mg prazosin , 14 tabs of duloxetine 30 mg, 7 tabs of diphenhydramine 50 mg.
--- NOTE | 2019-04-05 01:35 | NUR ---
5150 Written by Vernell Mitchell [facility]
[2019-04-05 01:52] LABS: URINE HCG NEGATIVE (NEG)
--- NOTE | 2019-04-05 02:02 | NUR ---
POISON CONTROL (CHRISTY) RECOMMENDS PROTECTING AIRWAY/BREATHING R/T SEDATIVE EFFECTS. PT MAY EXHIBIT ALTERED MENTAL STATUS. IF SEIZURES OCCUR, TREAT WITH BENZODIAZEPINES. EKG SHOULD BE DONE Q 4 HRS TO WATCH FOR QRS COMPLEX CHANGES. IF QRS > 120 THEN ADMINISTER BICARB BOLUSES. MAINTAIN K > 4, AND Mg >2. TREAT HYPOTENSION W/ FLUID BOLUSES. VALPROIC ACID AND NH LEVELS SHOULD BE DRAWN Q4 HRS X 3. VALPROIC ACID IS EXTENDED RELEASE THEREFORE SYMPTOMS MAY BE PROLONGED. PT SHOULD STAY UNDER OBSERVATION FOR 8 HRS.
[2019-04-05 02:08] LABS: URINE AMPHETAMINE SCREEN NEGATIVE (Neg); URINE BARBITUATE SCREEN NEGATIVE (Neg); URINE BENZODIAZEPINES SCREEN NEGATIVE (Neg); URINE CANNABINOID SCREEN NEGATIVE (Neg); URINE COCAINE SCREEN NEGATIVE (Neg); URINE METHADONE SCREEN NEGATIVE (Neg); URINE OPIATE SCREEN NEGATIVE (Neg); URINE PHENCYCLIDINE SCREEN NEGATIVE (Neg)
[2019-04-05 02:09] LABS: ALANINE AMINOTRANSFERASE 67 U/L (12-78); ALBUMIN 3.5 G/DL (3.4-5.0); ALKALINE PHOSPHATASE 56 IU/L (46-116); ANION GAP 11 (8-16); ASPARTATE AMINO TRANSFERASE 26 U/L (10-37); BILIRUBIN,TOTAL 0.3 MG/DL (0.1-1.0); BLOOD UREA NITROGEN 12 MG/DL (7-18); BUN/CREATININE RATIO 13.6 (6.6-38.0); CALCIUM 8.1 MG/DL (8.5-10.1); CHLORIDE 108 MMOL/L (99-107); CREATININE 0.88 MG/DL (0.40-0.90); GLUCOSE 122 MG/DL (70-104); POTASSIUM 4.2 MMOL/L (3.5-5.1); SODIUM 143 MMOL/L (135-145); TOTAL CARBON DIOXIDE 24.1 MMOL/L (24-32); eGFR 75 ML/MIN
[2019-04-05 02:10] LABS: ETHANOL < 0.010 GM/DL (0.0-0.010)
[2019-04-05 02:11] LABS: BASOPHILS % (AUTO) 0.2 % (0-1); EOSINOPHILS # (AUTO) 0.2 X10'3 (0-0.9); EOSINOPHILS % (AUTO) 2.5 % (0-6); HEMATOCRIT 39.4 % (35.0-45.0); HEMOGLOBIN 13.3 g/dl (12.0-16.0); LYMPHOCYTES # (AUTO) 1.3 X10'3 (1.1-4.8); LYMPHOCYTES % (AUTO) 17.2 % (21-51); MEAN CORPUSCULAR HGB CONC 33.8 g/dL (33.0-36.5); MEAN CORPUSCULAR VOLUME 88.8 FL (78-98); MEAN PLATELET VOLUME 6.9 FL (7.4-10.4); MONOCYTES % (AUTO) 14.1 % (2-12); NEUTROPHILS # (AUTO) 4.9 X10'3 (1.8-7.7); PLATELET COUNT 272 X10'3 (140-440); RED BLOOD COUNT 4.44 X10'6 (4.20-5.60); RED CELL DISTRIBUTION WIDTH 13.3 % (11.5-14.5); WHITE BLOOD COUNT 7.4 X10'3 (4.5-11.0)
[2019-04-05 02:37] LABS: CLARITY,URINE CLEAR (Clear); COLOR,URINE STRAW (Yellow); GLUCOSE, URINE NEGATIVE (Neg); KETONES,URINE NEGATIVE (Neg); LEUKOCYTE ESTERASE ,URINE NEGATIVE (Neg); NITRITES, URINE NEGATIVE (Neg); OCCULT BLOOD,URINE NEGATIVE (Neg); PH,URINE 5.5 (4.8-8.0); PROTEIN,URINE NEGATIVE (Neg); UROBILINOGEN,URINE 0.2 E.U/dL (0.2-1.0)
[2019-04-05 02:38] LABS: UA COLLECTION TYPE CLN CATCH MIDSTREAM
[2019-04-05 02:50] LABS: ACETAMINOPHEN < 2.0 UG/ML (10-30)
[2019-04-05] MEDS ORDERED: naloxone 2mg/2ml inj IV STA (03:27)
[2019-04-05] MEDS ORDERED: naloxone 0.4 mg/ml inj IV PRN (04:30)
[2019-04-05] MEDS ORDERED: acetaminophen 325mg tablet PO PRN (04:30)
[2019-04-05] MEDS ORDERED: magnesium 4gm in 100ml NS 100 ML IV PRN (04:30)
[2019-04-05] MEDS ORDERED: potassium CL 10mEq/100ml bag 100 ML IV PRN ×2 (04:30)
[2019-04-05] MEDS ORDERED: magnesium 2GM in 50ml NS 50 ML IV PRN (04:30)
[2019-04-05] MEDS ORDERED: potassium Cl 20 mEq SR tablet PO PRN ×2 (04:30)
[2019-04-05] MEDS ORDERED: magnesium Cl slow-release 64mg tablet PO PRN (04:30)
[2019-04-05] MEDS: normal saline 1000ml 1,000 ML IV SCH ×2 (04:44→14:28)
--- NOTE | 2019-04-05 06:06 | NUR ---
FOLLOW UP CALL WITH CHRISTY FROM POISON CONTROL. IF PT CONDITION CHANGES CALL POISON CONTROL FOR MORE RECOMMENDATIONS
[2019-04-05] MEDS: K and/or MAG REPLACEMENT MC SCH (08:00)
[2019-04-05] MEDS: enoxaparin 40mg/0.4ml syringe SQ SCH (08:58)
--- NOTE | 2019-04-05 09:30 | NUR ---
SPOKE TO POISON CONTROL (ELIZABETH) AND WAS TOLD TO D/C EKG SINCE PRIOR ONE WAS UNREMARKABLE, BUT TO GET ONE DONE PRIOR TO D/C FROM HOSPITAL, BUT CONTINUE DESIGN VERIFICATION ENGINEER. LABS WILL BE RE-DRAWN AT 1015.
--- NOTE | 2019-04-05 10:52 | NUR ---
TALKED TO PT. AND PT. IS STILL WANTING TO HARM HERSELF. SHE DOES NOT HAVE A PLAN, BUT STILL WANTS TO KILL HERSELF.
[2019-04-05] MEDS ORDERED: DIPH25CA83 PO (13:42)
[2019-04-05] MEDS ORDERED: BUSP5TAB3 PO (13:42)
--- NOTE | 2019-04-05 13:57 | NUR ---
SPOKE TO DR. SEGURA WANTS US TO DO A GAIT TEST AND TO SIT HER DOWN IN A CHAIR. MD WILL PLACE AN ORDER TO TREAT PT'S HTN. PT. HAS BEEN COMPLIANT WITH US. RESTING IN BED COMFORTABLY.
[2019-04-05] MEDS ORDERED: propranolol 10mg tablet PO ONE (14:00)
[2019-04-05] MEDS ORDERED: hyDRALAzine 10mg tablet PO PRN (14:00)
[2019-04-05] MEDS: acetaminophen 325mg tablet PO PRN ×2 (14:03→20:42)
--- NOTE | 2019-04-05 15:00 | NUR ---
Patient in room PCU 3018. I have received report from ER Nurse and had the opportunity to ask questions and assume patient care. Patient arrived on unit and was able to independently transfer to bed from wheelchair, sitter attending patient due to suicide precautions. Patient states she is still having suicidal ideation and will reattempt if she leaves hospital. Patient is currently resting in bed, bed locked adn low, call light in reach, will continue to monitor.
[2019-04-05 15:28] VITALS: BP 149/102
[2019-04-05 18:00] VITALS: BP 140/92
--- NOTE | 2019-04-05 18:20 | NUR ---
Problems reprioritized. Patient report given, questions answered & plan of care reviewed with MARQUIS Juares. Patient currently resting in bed, sitter at bedside, bed locked and low, call light in reach, stable at shift change
--- NOTE | 2019-04-05 18:37 | NUR ---
Patient in room PCU 3018. I have received report from Ching CHO and had the opportunity to ask questions and assume patient care.
[2019-04-05] MEDS: prazosin 1mg capsule PO SCH (20:40)
[2019-04-05] MEDS: propranolol 10mg tablet PO SCH (20:41)
[2019-04-05] MEDS: mag hydrox/Alum hydrox/simeth 30ml oral suspension PO PRN (21:30)
[2019-04-05 22:00] VITALS: BP 134/90
[2019-04-06] MEDS: normal saline 1000ml 1,000 ML IV SCH ×3 (00:23→23:27)
[2019-04-06 02:00] VITALS: BP 111/78
[2019-04-06] MEDS: ondansetron/PF 4mg/2ml inj IV PRN (05:33)
--- NOTE | 2019-04-06 06:35 | NUR ---
Problems reprioritized. Patient report given, questions answered & plan of care reviewed with Jennifer CHO.
--- NOTE | 2019-04-06 06:42 | NUR ---
Patient in room PCU 3018. I have received report from Samantha CHO and had the opportunity to ask questions and assume patient care.
--- NOTE | 2019-04-06 06:44 | NUR ---
Patient in room PCU 3018 A. I have received report from Samantha CHO and had the opportunity to ask questions and assume patient care.
[2019-04-06 06:47] LABS: BASOPHILS % (AUTO) 0.1 % (0-1); EOSINOPHILS # (AUTO) 0.3 X10'3 (0-0.9); HEMATOCRIT 35.7 % (35.0-45.0); HEMOGLOBIN 12.1 g/dl (12.0-16.0); LYMPHOCYTES # (AUTO) 0.9 X10'3 (1.1-4.8); MEAN CORPUSCULAR HEMOGLOBIN 30.4 PG (27.0-31.0); MEAN CORPUSCULAR HGB CONC 33.8 g/dL (33.0-36.5); MEAN PLATELET VOLUME 7.1 FL (7.4-10.4); MONOCYTES # (AUTO) 1.1 X10'3 (0-0.9); MONOCYTES % (AUTO) 13.9 % (2-12); NEUTROPHILS # (AUTO) 5.8 X10'3 (1.8-7.7); PLATELET COUNT 207 X10'3 (140-440); RED BLOOD COUNT 3.97 X10'6 (4.20-5.60); RED CELL DISTRIBUTION WIDTH 13.4 % (11.5-14.5); WHITE BLOOD COUNT 8.2 X10'3 (4.5-11.0)
[2019-04-06 06:48] LABS: ANION GAP 10 (8-16); BLOOD UREA NITROGEN 9 MG/DL (7-18); BUN/CREATININE RATIO 13.8 (6.6-38.0); CALCIUM 7.4 MG/DL (8.5-10.1); CHLORIDE 105 MMOL/L (99-107); CREATININE 0.65 MG/DL (0.40-0.90); GLUCOSE 85 MG/DL (70-104); POTASSIUM 3.7 MMOL/L (3.5-5.1); SODIUM 139 MMOL/L (135-145); TOTAL CARBON DIOXIDE 24.3 MMOL/L (24-32); eGFR > 90 ML/MIN
[2019-04-06 07:00] VITALS: BP 127/91
[2019-04-06] MEDS: K and/or MAG REPLACEMENT MC SCH (08:00)
[2019-04-06] MEDS: propranolol 10mg tablet PO SCH ×2 (08:49→20:35)
[2019-04-06] MEDS: enoxaparin 40mg/0.4ml syringe SQ SCH (08:49)
[2019-04-06] MEDS: magnesium hydroxide 30ml (MOM) UD suspension PO PRN (08:49)
[2019-04-06 11:00] VITALS: BP 149/86
[2019-04-06] MEDS: mag hydrox/Alum hydrox/simeth 30ml oral suspension PO PRN (14:46)
[2019-04-06 15:00] VITALS: BP 121/80
[2019-04-06 18:00] VITALS: BP 131/84
--- NOTE | 2019-04-06 18:15 | NUR ---
Patient in room PCU 3018. I have received report from Jennifer CHO and had the opportunity to ask questions and assume patient care.
--- NOTE | 2019-04-06 18:46 | NUR ---
Problems reprioritized. Patient report given, questions answered & plan of care reviewed with Cady CHO.
[2019-04-06] MEDS: diatr meglu/diatrizoate 30ml oral sol.-(3 dose) bottle PO SCH ×2 (20:35→23:28)
[2019-04-06] MEDS: prazosin 1mg capsule PO SCH (20:35)
[2019-04-06 22:00] VITALS: BP 116/92
[2019-04-07 02:00] VITALS: BP 109/78
[2019-04-07] MEDS: diatr meglu/diatrizoate 30ml oral sol.-(3 dose) bottle PO SCH (02:23)
[2019-04-07 05:54] LABS: BASOPHILS % (AUTO) 0.1 % (0-1); EOSINOPHILS # (AUTO) 0.3 X10'3 (0-0.9); EOSINOPHILS % (AUTO) 4.3 % (0-6); HEMOGLOBIN 11.8 g/dl (12.0-16.0); LYMPHOCYTES # (AUTO) 1.5 X10'3 (1.1-4.8); MEAN CORPUSCULAR HEMOGLOBIN 30.4 PG (27.0-31.0); MEAN CORPUSCULAR HGB CONC 33.8 g/dL (33.0-36.5); MEAN CORPUSCULAR VOLUME 89.8 FL (78-98); MEAN PLATELET VOLUME 7.2 FL (7.4-10.4); MONOCYTES # (AUTO) 1.1 X10'3 (0-0.9); MONOCYTES % (AUTO) 15.4 % (2-12); NEUTROPHILS # (AUTO) 4.1 X10'3 (1.8-7.7); NEUTROPHILS % (AUTO) 59.2 % (42-75); PLATELET COUNT 188 X10'3 (140-440); RED BLOOD COUNT 3.89 X10'6 (4.20-5.60); RED CELL DISTRIBUTION WIDTH 13.5 % (11.5-14.5)
[2019-04-07 05:58] LABS: ANION GAP 9 (8-16); BLOOD UREA NITROGEN 9 MG/DL (7-18); BUN/CREATININE RATIO 11.1 (6.6-38.0); CALCIUM 7.8 MG/DL (8.5-10.1); CHLORIDE 106 MMOL/L (99-107); CREATININE 0.81 MG/DL (0.40-0.90); GLUCOSE 86 MG/DL (70-104); MAGNESIUM 2.3 MG/DL (1.5-2.4); POTASSIUM 3.7 MMOL/L (3.5-5.1); SODIUM 141 MMOL/L (135-145); TOTAL CARBON DIOXIDE 25.8 MMOL/L (24-32); eGFR 83 ML/MIN
--- NOTE | 2019-04-07 06:29 | NUR ---
Patient in room PCU 3018. I have received report from janay CHO and had the opportunity to ask questions and assume patient care.
--- NOTE | 2019-04-07 06:35 | NUR ---
Problems reprioritized. Patient report given, questions answered & plan of care reviewed with Jennifer CHO.
[2019-04-07 06:53] VITALS: BP 114/82
[2019-04-07 07:39] LABS: PLATELET ESTIMATE NORMAL; TOTAL CELLS COUNTED 100
[2019-04-07] MEDS: enoxaparin 40mg/0.4ml syringe SQ SCH (07:42)
[2019-04-07] MEDS: propranolol 10mg tablet PO SCH ×2 (07:42→20:45)
[2019-04-07] MEDS: normal saline 1000ml 1,000 ML IV SCH (07:44)
[2019-04-07] MEDS: K and/or MAG REPLACEMENT MC SCH (08:00)
[2019-04-07] MEDS ORDERED: diatr meglu/diatrizoate 30ml oral sol.-(3 dose) bottle PO SCH (09:00)
[2019-04-07 11:00] VITALS: BP 127/76
[2019-04-07 13:29] LABS: OCCULT BLOOD STOOL POSITIVE (Neg)
[2019-04-07 15:00] VITALS: BP 145/98
--- NOTE | 2019-04-07 15:59 | NUR ---
PAGER ID: [phone] MESSAGE: [id number] Alver[place], states her "left abdominal pain is getting worse and worse." please advice. Jennifer CHO [phone]
[2019-04-07] MEDS: acetaminophen 325mg tablet PO PRN (16:02)
--- NOTE | 2019-04-07 18:15 | NUR ---
Patient in room PCU 3018. I have received report from Jennifer CHO and had the opportunity to ask questions and assume patient care.
--- NOTE | 2019-04-07 18:47 | NUR ---
Problems reprioritized. Patient report given, questions answered & plan of care reviewed with Cady CHO.
[2019-04-07 19:00] VITALS: BP 141/82
[2019-04-07] MEDS: magnesium hydroxide 30ml (MOM) UD suspension PO PRN (20:44)
[2019-04-07] MEDS: prazosin 1mg capsule PO SCH (20:44)
[2019-04-07] MEDS ORDERED: levoFLOXACIN-Levaquin 500mg/D5 100 ML IV SCH (22:50)
[2019-04-07 23:00] VITALS: BP 115/76
[2019-04-08] MEDS: normal saline 1000ml 1,000 ML IV SCH ×3 (00:09→23:48)
[2019-04-08] MEDS: pantoprazole 40 MG vial IV SCH ×2 (00:09→08:03)
[2019-04-08] MEDS: metroNIDAZOLE-Flagyl 500mg/NS 100 ML IV SCH ×4 (01:54→23:46)
[2019-04-08 03:00] VITALS: BP 107/75
[2019-04-08 06:05] LABS: BASOPHILS % (AUTO) 0.2 % (0-1); EOSINOPHILS # (AUTO) 0.3 X10'3 (0-0.9); EOSINOPHILS % (AUTO) 4.2 % (0-6); HEMATOCRIT 36.2 % (35.0-45.0); HEMOGLOBIN 12.5 g/dl (12.0-16.0); LYMPHOCYTES # (AUTO) 1.6 X10'3 (1.1-4.8); LYMPHOCYTES % (AUTO) 22.7 % (21-51); MEAN CORPUSCULAR HEMOGLOBIN 30.9 PG (27.0-31.0); MEAN CORPUSCULAR HGB CONC 34.5 g/dL (33.0-36.5); MEAN CORPUSCULAR VOLUME 89.4 FL (78-98); MEAN PLATELET VOLUME 7.4 FL (7.4-10.4); NEUTROPHILS % (AUTO) 57.9 % (42-75); PLATELET COUNT 191 X10'3 (140-440); RED BLOOD COUNT 4.05 X10'6 (4.20-5.60); RED CELL DISTRIBUTION WIDTH 13.3 % (11.5-14.5); WHITE BLOOD COUNT 6.9 X10'3 (4.5-11.0)
--- NOTE | 2019-04-08 06:16 | NUR ---
Problems reprioritized. Patient report given, questions answered & plan of care reviewed with Jennifer CHO and Nichole CHO.
--- NOTE | 2019-04-08 06:23 | NUR ---
Patient in room PCU 3018. I have received report from Cady CHO and had the opportunity to ask questions and assume patient care.
[2019-04-08 06:29] LABS: ANION GAP 10 (8-16); BLOOD UREA NITROGEN 14 MG/DL (7-18); BUN/CREATININE RATIO 18.2 (6.6-38.0); CALCIUM 8.5 MG/DL (8.5-10.1); CHLORIDE 103 MMOL/L (99-107); CREATININE 0.77 MG/DL (0.40-0.90); GLUCOSE 91 MG/DL (70-104); POTASSIUM 3.7 MMOL/L (3.5-5.1); SODIUM 140 MMOL/L (135-145); TOTAL CARBON DIOXIDE 27.2 MMOL/L (24-32); eGFR 88 ML/MIN
--- NOTE | 2019-04-08 06:39 | NUR ---
Problems reprioritized. Patient report given, questions answered & plan of care reviewed with Terry RN and Sherri RN.
[2019-04-08 06:53] VITALS: BP_SYST 106; BP_SYST 150; BP_DIAS 75; BP_DIAS 77
[2019-04-08 07:08] LABS: PLATELET ESTIMATE NORMAL; TOTAL CELLS COUNTED 100
[2019-04-08] MEDS: K and/or MAG REPLACEMENT MC SCH (08:00)
[2019-04-08] MEDS: propranolol 10mg tablet PO SCH ×2 (08:03→18:57)
[2019-04-08 11:00] VITALS: BP 117/77
[2019-04-08 14:36] LABS: OCCULT BLOOD STOOL NEGATIVE (Neg)
[2019-04-08 15:00] VITALS: BP 121/84
[2019-04-08 15:54] LABS: OCCULT BLOOD STOOL NEGATIVE (Neg)
[2019-04-08] MEDS: ondansetron/PF 4mg/2ml inj IV PRN (17:31)
--- NOTE | 2019-04-08 18:14 | NUR ---
Problems reprioritized. Patient report given, questions answered & plan of care reviewed with Anel CHO.
--- NOTE | 2019-04-08 18:38 | NUR ---
Patient in room PCU 3018. I have received report from Jennifer CHO and had the opportunity to ask questions and assume patient care. Pt is sitting up in bed eating dinner, disposition is pleasant. Sitter at bedside. No signs of distress, will continue to monitor.
[2019-04-08 18:40] VITALS: BP 117/81
[2019-04-08] MEDS: acetaminophen 325mg tablet PO PRN (20:21)
[2019-04-08] MEDS: prazosin 1mg capsule PO SCH (20:22)
--- NOTE | 2019-04-08 20:32 | NUR ---
Pt complaining of lower left abdominal pain after her bowel movement. Tylenol administered. Will continue to monitor.
[2019-04-08 22:00] VITALS: BP 108/73
[2019-04-09 02:00] VITALS: BP 97/59
[2019-04-09 05:13] LABS: BASOPHILS % (AUTO) 0.4 % (0-1); EOSINOPHILS # (AUTO) 0.3 X10'3 (0-0.9); EOSINOPHILS % (AUTO) 2.9 % (0-6); HEMATOCRIT 37.9 % (35.0-45.0); HEMOGLOBIN 13.1 g/dl (12.0-16.0); LYMPHOCYTES # (AUTO) 2.2 X10'3 (1.1-4.8); LYMPHOCYTES % (AUTO) 23.9 % (21-51); MEAN CORPUSCULAR HEMOGLOBIN 30.6 PG (27.0-31.0); MEAN CORPUSCULAR HGB CONC 34.5 g/dL (33.0-36.5); MEAN CORPUSCULAR VOLUME 88.7 FL (78-98); MONOCYTES # (AUTO) 1.1 X10'3 (0-0.9); MONOCYTES % (AUTO) 11.7 % (2-12); NEUTROPHILS # (AUTO) 5.6 X10'3 (1.8-7.7); NEUTROPHILS % (AUTO) 61.1 % (42-75); PLATELET COUNT 239 X10'3 (140-440); RED BLOOD COUNT 4.27 X10'6 (4.20-5.60); RED CELL DISTRIBUTION WIDTH 13.5 % (11.5-14.5); WHITE BLOOD COUNT 9.1 X10'3 (4.5-11.0)
[2019-04-09 05:20] LABS: ALBUMIN 3.1 G/DL (3.4-5.0); ANION GAP 8 (8-16); BLOOD UREA NITROGEN 16 MG/DL (7-18); CALCIUM 9.1 MG/DL (8.5-10.1); CHLORIDE 104 MMOL/L (99-107); GLUCOSE 111 MG/DL (70-104); POTASSIUM 4.1 MMOL/L (3.5-5.1); SODIUM 139 MMOL/L (135-145); TOTAL CARBON DIOXIDE 26.7 MMOL/L (24-32); eGFR 84 ML/MIN
--- NOTE | 2019-04-09 06:24 | NUR ---
Problems reprioritized. Patient report given, questions answered & plan of care reviewed with Jessica CHO.
--- NOTE | 2019-04-09 06:29 | NUR ---
Patient in room PCU 3018. I have received report from Anel CHO and had the opportunity to ask questions and assume patient care. Patient asleep in bed with sitter bedside. All immediate needs met at this time.
[2019-04-09 07:00] VITALS: BP 95/57
[2019-04-09 07:04] LABS: LARGE PLATELETS FEW; PLATELET ESTIMATE NORMAL; TOTAL CELLS COUNTED 100
[2019-04-09] MEDS: pantoprazole 40mg Tablet.DR PO SCH (07:27)
[2019-04-09] MEDS: metroNIDAZOLE-Flagyl 500mg/NS 100 ML IV SCH ×3 (07:27→23:06)
[2019-04-09] MEDS: K and/or MAG REPLACEMENT MC SCH (08:00)
[2019-04-09] MEDS: levoFLOXACIN-Levaquin 500mg/D5 100 ML IV SCH (08:48)
[2019-04-09 11:00] VITALS: BP 107/62
[2019-04-09] MEDS: propranolol 10mg tablet PO SCH ×2 (12:03→20:55)
--- NOTE | 2019-04-09 13:42 | NUR ---
Dr. Poon: PAGER ID: [phone] MESSAGE: RE: Raquel Del Toro [id number]. FYI - patient complaining of pain 7/10 to left lower quadrant. Patient had BM today with no dark or bloody stool. Patient states pain is a dull ache. Jessica [phone]
[2019-04-09 15:00] VITALS: BP 109/58
[2019-04-09] MEDS: ondansetron/PF 4mg/2ml inj IV PRN (16:43)
[2019-04-09] MEDS: acetaminophen 325mg tablet PO PRN ×2 (16:43→23:05)
[2019-04-09 18:00] VITALS: BP 112/70
--- NOTE | 2019-04-09 18:20 | NUR ---
Problems reprioritized. Patient report given, questions answered & plan of care reviewed with MARQUIS Vaughan. Patient stable at transfer of care.
--- NOTE | 2019-04-09 18:20 | NUR ---
Patient in room PCU 3018. I have received report from Jessica/Ching CHO and had the opportunity to ask questions and assume patient care.
[2019-04-09] MEDS: lactobacillus rhamnosus 10,000 MMU CELLS/CAPSULE PO SCH (20:51)
[2019-04-09] MEDS: prazosin 1mg capsule PO SCH (20:54)
[2019-04-09 22:00] VITALS: BP 104/69
[2019-04-09] MEDS: normal saline 1000ml 1,000 ML IV SCH (23:05)
[2019-04-10] MEDS: acetaminophen 325mg tablet PO PRN (00:13)
[2019-04-10 02:00] VITALS: BP 95/60
[2019-04-10 05:26] LABS: ALBUMIN 3.3 G/DL (3.4-5.0); ANION GAP 13 (8-16); BLOOD UREA NITROGEN 15 MG/DL (7-18); BUN/CREATININE RATIO 17.4 (6.6-38.0); CALCIUM 8.7 MG/DL (8.5-10.1); CHLORIDE 102 MMOL/L (99-107); CREATININE 0.86 MG/DL (0.40-0.90); GLUCOSE 105 MG/DL (70-104); MAGNESIUM 1.8 MG/DL (1.5-2.4); POTASSIUM 4.1 MMOL/L (3.5-5.1); SODIUM 141 MMOL/L (135-145); TOTAL CARBON DIOXIDE 26.2 MMOL/L (24-32); eGFR 77 ML/MIN
[2019-04-10 05:32] LABS: BASOPHILS # (AUTO) 0.1 X10'3 (0-0.2); BASOPHILS % (AUTO) 0.4 % (0-1); EOSINOPHILS # (AUTO) 0.3 X10'3 (0-0.9); EOSINOPHILS % (AUTO) 2.2 % (0-6); HEMATOCRIT 39.1 % (35.0-45.0); HEMOGLOBIN 13.3 g/dl (12.0-16.0); LYMPHOCYTES % (AUTO) 25.1 % (21-51); MEAN CORPUSCULAR HEMOGLOBIN 30.1 PG (27.0-31.0); MEAN CORPUSCULAR HGB CONC 34.1 g/dL (33.0-36.5); MEAN CORPUSCULAR VOLUME 88.3 FL (78-98); MEAN PLATELET VOLUME 7.1 FL (7.4-10.4); MONOCYTES # (AUTO) 1.2 X10'3 (0-0.9); MONOCYTES % (AUTO) 9.7 % (2-12); NEUTROPHILS # (AUTO) 7.4 X10'3 (1.8-7.7); NEUTROPHILS % (AUTO) 62.6 % (42-75); PLATELET COUNT 270 X10'3 (140-440); RED BLOOD COUNT 4.43 X10'6 (4.20-5.60); RED CELL DISTRIBUTION WIDTH 12.9 % (11.5-14.5); WHITE BLOOD COUNT 11.9 X10'3 (4.5-11.0)
--- NOTE | 2019-04-10 06:06 | NUR ---
Problems reprioritized. Patient report given, questions answered & plan of care reviewed with Jessica/Ching CHO.
--- NOTE | 2019-04-10 06:32 | NUR ---
Patient in room PCU 3018a. I have received report from MARQUIS Agarwal and had the opportunity to ask questions and assume patient care. Pt sleeping at this time, sitter at bedside.
[2019-04-10 06:33] LABS: TOTAL CELLS COUNTED 100
--- NOTE | 2019-04-10 06:33 | NUR ---
Patient in room PCU 3018. I have received report from Clement CHO and had the opportunity to ask questions and assume patient care. Patient asleep at this time. Sitter present bedside. All immediate needs met.
[2019-04-10 06:34] LABS: PLATELET ESTIMATE NORMAL
[2019-04-10 07:00] VITALS: BP 124/86
[2019-04-10] MEDS: K and/or MAG REPLACEMENT MC SCH (08:00)
[2019-04-10] MEDS: lactobacillus rhamnosus 10,000 MMU CELLS/CAPSULE PO SCH (08:47)
[2019-04-10] MEDS: pantoprazole 40mg Tablet.DR PO SCH (08:47)
[2019-04-10] MEDS: propranolol 10mg tablet PO SCH (08:47)
[2019-04-10] MEDS: levoFLOXACIN-Levaquin 500mg/D5 100 ML IV SCH (08:47)
[2019-04-10] MEDS: metroNIDAZOLE-Flagyl 500mg/NS 100 ML IV SCH ×2 (10:25→16:01)
[2019-04-10 11:00] VITALS: BP 96/45
[2019-04-10] MEDS: ondansetron/PF 4mg/2ml inj IV PRN (12:00)
[2019-04-10 15:00] VITALS: BP 118/66
--- NOTE | 2019-04-10 15:44 | NUR ---
Paged Dr. Poon: PAGER ID: [phone] MESSAGE: Re [phone] Raquel Del Toro. [facility] wants a TSH level on pt. Can one be ordered please? Thank you. Nichole [phone]
--- NOTE | 2019-04-10 16:52 | NUR ---
Paged Dr. Poon: PAGER ID: [phone] MESSAGE: RE: Raquel Del Toro [id number]. Per ED overflow they have a bed to take this patient. They state patient would need to be discharged from PCU and be readmitted through overflow. Thank you, Jessica [phone]
[2019-04-10] MEDS ORDERED: LEVO500T89 PO (17:11)
[2019-04-10] MEDS ORDERED: METR-159 PO (17:11)
[2019-04-10] MEDS ORDERED: LACT1CAP26 PO (17:11)
[2019-04-10] MEDS ORDERED: PANT40TA4 PO (17:11)
--- NOTE | 2019-04-10 17:37 | NUR ---
Pt stable for discharge per MD order. Pt discharged to ED Overflow for further evaluation. IV d/c'd catheter intact. Tele monitor removed and tele box returned to telephone answering service operator. Pt given discharge instruction, and verbalized understanding. Pt wheeled to ED overflow by clinical staff pharmacist. Home medication list given to ED overflow RN.
--- NOTE | 2019-04-10 17:52 | NUR ---
Pharmacy slip with patient stored meds given to ED overflow RN.
--- NOTE | 2019-04-10 17:57 | NUR ---
[place] documentation: I have reviewed and agree with all interventions, assessments performed and documented by MARQUIS Varela. [place] Medication Administration: For this medication-pass time frame, all medication were reviewed, dispensed, administered and documented per hospital policy by MARQUIS Varela.
[2019-04-10] MEDS ORDERED: LEVO500T2 PO (19:12)
[2019-04-10] MEDS ORDERED: LACTC PO (19:12)
[2019-04-10] MEDS ORDERED: METR500T PO (19:14)
[2019-04-10] MEDS ORDERED: PANT-47 PO (19:15)
[2019-04-10] MEDS ORDERED: PRAZ2CAP2 PO (19:17)
== END 2019-04-10 17:35 | DRG 817 ==
LOC: ER 01:06 → PCU 3S 14:59 → CMPBEDREQ 04-07 19:56
PROVIDERS: ADMIT Hospitalist; ATTEND Family Medicine
DX: T43.592A Poisoning by other antipsychotics and neuroleptics, intentional self-harm, initial encounter (principal); R45.851 Suicidal ideations; K76.0 Fatty (change of) liver, not elsewhere classified; E03.9 Hypothyroidism, unspecified; T44.6X2A Poisoning by alpha-adrenoreceptor antagonists, intentional self-harm, initial encounter; T43.212A Poisoning by selective serotonin and norepinephrine reuptake inhibitors, intentional self-harm, initial encounter; F32.9 Major depressive disorder, single episode, unspecified; T45.0X2A Poisoning by antiallergic and antiemetic drugs, intentional self-harm, initial encounter; I10 Essential (primary) hypertension; I88.0 Nonspecific mesenteric lymphadenitis; K64.9 Unspecified hemorrhoids; Z79.890 Hormone replacement therapy; Y92.89 Other specified places as the place of occurrence of the external cause; Z79.899 Other long term (current) drug therapy
CPT/HCPCS: 36415; 70450; 74176; 80048; 80053; 80164; 80305; 80320; 80329; 81003; 81025; 82140; 82272; 83605; 83735; 84145; 84443; 85025; 87081; 93005; 96372; 96374; 99291; C9113; G0378; J1650; J1956; J2310; J2405; J3490; J7030; Q9963

== ENCOUNTER 2019-04-10 17:40 | Emergency (ER) | payer MEDICAID ==
[~2019-04-10] VITALS: Ht 152.4 cm; Wt 77.0 kg
[~2019-04-10 17:40] MED LIST changes: -ARIP2TAB20 PO; +BUSP5TAB3 PO; +DIPH25CA83 PO; -HYDR-3686 PO; +LACT1CAP26 PO; +LEVO500T89 PO; +METR-159 PO; +PANT40TA4 PO
--- NOTE | 2019-04-10 18:30 | NUR ---
PT was admitted on day shift, transferred from PCU. Pt is currently sitting up in bed doing crossword puzzles. Pt is cooperative with physical assessment and interview. Pt states she overdosed on "all my pills" once she had discharged from [facility] because "things just weren't going like I wanted." Pt denies feeling suicidal at this time but "is sad it didn't work." Pt's affect is incongruent to her statements, she is smiling and laughs occasionally. She denies any pain at this time, her vitals are WNL.
[2019-04-10] MEDS ORDERED: LACTC PO (19:12)
[2019-04-10] MEDS ORDERED: LEVO500T2 PO (19:12)
[2019-04-10] MEDS ORDERED: METR500T PO (19:14)
[2019-04-10] MEDS ORDERED: PANT-47 PO (19:15)
[2019-04-10] MEDS ORDERED: PRAZ2CAP2 PO (19:17)
[2019-04-10] MEDS ORDERED: albuterol 2.5 MG/3 ML nebule NEB PRN (19:30)
[2019-04-10] MEDS: prazosin 1mg capsule PO SCH (20:35)
[2019-04-10] MEDS: propranolol 10mg tablet PO SCH (20:35)
[2019-04-10] MEDS: lactobacillus rhamnosus 10,000 MMU CELLS/CAPSULE PO SCH (20:35)
[2019-04-10] MEDS: metroNIDAZOLE 500mg tablet PO SCH (20:35)
--- NOTE | 2019-04-10 21:00 | NUR ---
PT is medication compliant and pleasant. She rests in bed after eating and reads a book occasionally. She offers no compliants at this time.
--- NOTE | 2019-04-10 23:00 | NUR ---
PT is sleeping on stomach, RR WNL.
--- NOTE | 2019-04-11 02:00 | NUR ---
PT asleep in supine position. Respirations are even and unlabored. No signs or symptoms of distress at this time are observed.
--- NOTE | 2019-04-11 02:23 | NUR ---
PT PACKET FAXED TO [facility]
--- NOTE | 2019-04-11 04:00 | NUR ---
Pt asleep in supine position, respirations even and not labored.
--- NOTE | 2019-04-11 05:44 | NUR ---
Pt resting in supine position, RR WNL, no signs or symptoms of distress at this time.
[2019-04-11] MEDS ORDERED: levoTHYROXINE 25mcg tablet PO SCH (07:00)
[2019-04-11] MEDS ORDERED: pantoprazole 40mg Tablet.DR PO SCH (07:30)
[2019-04-11] MEDS: lactobacillus rhamnosus 10,000 MMU CELLS/CAPSULE PO SCH ×2 (08:02→21:17)
[2019-04-11] MEDS: propranolol 10mg tablet PO SCH ×2 (08:03→21:16)
[2019-04-11] MEDS: metroNIDAZOLE 500mg tablet PO SCH ×2 (08:03→21:16)
--- NOTE | 2019-04-11 09:33 | NUR ---
Patient calm cooperative and compliant with med pass. states she still feels suicidal "I'm just sad my attempt didn't work". When asked what triggered her recent attempt, she explained it was night, she was alone in bed and "just didn't want to live". States MDD began approximately 5 years ago after a very good friend of hers didn't want to be her friend anymore. Unsure if her parents want her back, as they are getting older and don't need to deal with the stress of repeated suicide attempts.
--- NOTE | 2019-04-11 09:55 | NUR ---
relieving RN for break, pt is in restroom for personal hygiene, pt is calm and cooperative
[2019-04-11] MEDS ORDERED: levoFLOXACIN 500mg tablet PO SCH (11:00)
--- NOTE | 2019-04-11 12:15 | NUR ---
relieving RN for lunch, pt is sleeping on bed, resp even and unlabored
--- NOTE | 2019-04-11 12:37 | NUR ---
[facility] office called to have nursing notes from yesterday and today faxed
--- NOTE | 2019-04-11 13:58 | NUR ---
Quietly coloring in book.
--- NOTE | 2019-04-11 14:37 | NUR ---
Karie CHO [place] [facility] phoned for Nurse to Nurse report. The plan is to present patient to their provider and notify the county.
--- NOTE | 2019-04-11 15:56 | NUR ---
1555 notified patient has been accepted to [facility] [place] per Suzy with [facility]. Accepting provider Dr. Anderson. Offical time of acceptance 1525. Patti is the non-medical personnel. [facility] will transport patient after 2200 04/11/19.
[2019-04-11] MEDS ORDERED: ibuprofen tablet 400 MG TABLET PO PRN (17:55)
[2019-04-11] MEDS ORDERED: ibuprofen 200mg tablet PO PRN (18:01)
[2019-04-11 18:02] VITALS: BP 130/82
--- NOTE | 2019-04-11 19:03 | NUR ---
Assuming care from Day Shift RN, Cleo Crawley She reports Pt to be discharged to [facility] and picked up around 2129. Pt currently sitting up at edge of bed and eating her dinner tray. She is calm and quite.
--- NOTE | 2019-04-11 19:25 | NUR ---
PT COOPERATIVE WITH PHYSICAL AND NURSING ASSESSMENT. REPROTS INSOMMNIA AND THAT SHE TAKES AN OTC NATURAL MED AT HOME TO HELP HER SLEEP. REPORTS SHE TOOK A LONG TIME TO GET TO SLEEP LAST NIGHT AND SHE WOULD APPRECIATE A SLEEP AID IF AVAILABLE TONIGHT. SHE REPROTS SHE WOULD LIKE TO GO HOME BUT THAT SHE IS HOPEFUL OF GETTING HELP AND GETTING ON MEDS TO HELP WITH HER NEWLY DIAGNOSED BIPOLAR. STATES THAT WHEN SHE LEFT [facility] ON SUNDAY SHE TOLD THEM SHE DID NOT FEEL READY AND WHEN SHE GOT HOME SHE TOOK A BUNCH OF HOME MEDS AND RETURNED TO OUR ER AND GOT ADMITTED TO PCU. PT REPORTS SHE HAS BEEN STAYING WITH HER PARENTS BUT AFTER THIS EPISODE THEY "DONT WANT ME BACK" REPROTS SHE WAS GIVEN COMMUNITY RESOURCE INFORM FROM [facility] FOR HOUSING.
--- NOTE | 2019-04-11 19:45 | NUR ---
P TMOVED FROM OVERFLOW BED 26 TO OVERFLOW BED 23 D/T PTS DISORIENTATION
[2019-04-11] MEDS: prazosin 1mg capsule PO SCH (21:16)
--- NOTE | 2019-04-11 21:18 | NUR ---
dr. bueno updated the pt is concerned that she will not be able to sleep tonight again and requests sleep aid. melatonin now ordered.
[2019-04-11] MEDS ORDERED: Melatonin 3mg tablet PO SCH (21:25)
--- NOTE | 2019-04-11 21:42 | NUR ---
TRANSPORT HERE FOR PT TO GO TO [facility]. PT IS COMPLIANT AND COOPERATIVE WITH CHELO.
[2019-04-12] MEDS ORDERED: Melatonin 3mg tablet PO SCH (21:00)
== END 2019-04-11 21:56 ==
LOC: ER 17:40
DX: F31.9 Bipolar disorder, unspecified (principal); R45.851 Suicidal ideations; Z79.899 Other long term (current) drug therapy
CPT/HCPCS: 99285; J3490

== ENCOUNTER 2024-02-15 08:32 | Outpatient (CLI) | payer MEDICAID ==
[~2024-02-15 08:32] MED LIST changes: -BUPR150T8 PO; -BUSP5TAB26 PO; -BUSP5TAB3 PO; -DICY10CA88 PO; -DIPH25CA83 PO; -DIVA250T8 PO; -DULO30CA52 PO; -LACT1CAP26 PO; +LACTC PO; +LEVO500T2 PO; -LEVO500T89 PO; -METR-159 PO; +METR500T PO; +PANT-47 PO; -PANT40TA4 PO; -PRAZ1CAP5 PO; +PRAZ2CAP2 PO
== END 2024-02-15 23:59 | disposition home or self-care (01) ==
LOC: RAD 08:32
PROVIDERS: ATTEND Nurse Practitioner
DX: R27.0 Ataxia, unspecified (principal)
CPT/HCPCS: 95816